=== PATIENT | male | born 1970 | race Caucasian/White ===

== ENCOUNTER 2019-06-20 08:04 | Inpatient (IN) | payer MEDICAID ==
[~2019-06-20] VITALS: Ht 177.8 cm; Wt 58.3 kg
--- NOTE | ~2019-06-20 | HEMODYNAMI ---
PATIENT:PAM CARRILLO MEDICAL RECORD: [id number] : 68 LOCATION:[id number] ADMISSION DATE: 06/20/19 Generatedon:06/24/201914:16 Patient name: PAM CARRILLO Patient #: [id number] SSN: : 1970 Date of study: 06/24/2019 Page: Of Hemodynamic Procedure Report Patient Data Patient Demographics Procedure consent was obtained First Name: PAM Gender: Male Last Name: GERARDO : 1970 Patient #: [id number] Age: 49 year(s) Race: Unknown Additional ID: [id number] Contact details Address: [address] [place] [address] State: [place] City: [place] Zip code: [address] Past Medical History Allergies: No known allergies Admission Admission Data Admission Date: 06/20/2019 Admission Time: 11:25 Room #: [facility] Procedure Procedure Types Cath Procedure Peripheral Cath Diagnostic Procedure Kyphoplasty Kyphoplasty Thoracic Procedure Description Procedure Date Procedure Date: 06/24/2019 Procedure Start Time: 13:21 Procedure Staff Name Function Grvoer Barrios MD Performing Physician Lenka Lobo RT Monitor RHONDA MONTGOMERY RT Scrub Amie Wells RN Nurse Mariana Olmos RN Nurse Procedure Data Cath Procedure Fluoroscopy Diagnostic fluoroscopy Total fluoroscopy Time: time: 11.5 min 11.5 min Diagnostic fluoroscopy Total fluoroscopy dose: 334 dose: 334 mGy mGy Procedure Medications Medication Administration Route Dosage Ancef (1Gm/50ml NS) I.V.P.B 2 g Heparin Flush Bag added to field 1 bags (1000units/500ml NS) Lidocaine 1% added to field 20 Hemodynamics Rest Heart Rate: 66 (bpm) Snapshots Pre Cath Intra NCS Post Cath Vital Signs Time Heart Resp SPO2 etCO2 NIBP Rhythm Pain Sedation Rate (ipm) (%) (mmHg) (mmHg) Status Level (bpm) 13:01:59 99 20.4 129/64(86) NSR 0 (11) 10(A) , No pain 13:09:47 66 17 99 20.4 115/52(79) NSR 0 (11) 10(A) , No pain 13:13:57 73 21 98 13.6 109/55(83) NSR 0 (11) 10(A) , No pain 13:17:59 69 17 99 27.2 114/61(80) NSR 0 (11) 10(A) , No pain 13:22:07 67 13 99 28 105/59(80) NSR 0 (11) 10(A) , No pain 13:26:11 63 9 99 40.1 117/60(96) NSR 0 (11) 10(A) , No pain 13:30:18 62 10 99 37.8 111/58(77) NSR 0 (11) 10(A) , No pain 13:34:24 63 10 99 37.8 113/58(75) NSR 0 (11) 10(A) , No pain 13:38:30 62 10 99 36.3 106/58(77) NSR 0 (11) 10(A) , No pain 13:42:34 62 10 99 35.5 112/59(78) NSR 0 (11) 10(A) , No pain 13:46:44 61 10 99 34.8 105/50(77) NSR 0 (11) 10(A) , No pain 13:51:30 65 10 99 31 113/59(78) NSR 0 (11) 10(A) , No pain 13:55:34 66 11 100 25.7 116/70(95) NSR 0 (11) 10(A) , No pain 13:59:38 65 14 100 43.9 122/68(95) NSR 0 (11) 10(A) , No pain 14:03:48 63 10 99 42.4 118/58(95) NSR 0 (11) 10(A) , No pain 14:07:58 66 21 99 39.3 115/53(82) NSR 0 (11) 10(A) , No pain 14:12:03 62 11 100 36.3 113/60(82) NSR 0 (11) 10(A) , No pain 14:16:09 36.3 No Cuff NSR 0 (11) 10(A) , No pain Medications Time Medication Route Dose Verified Delivered Reason Notes Effe ctiveness by by 13:00:32 Heparin Flush added 1 Grover Ness used for Bag to bags Sophie Barrios procedure (1000units/500ml field MD DEAN NS) 13:00:47 Lidocaine 1% added 20ml Grover Ness used for to vial Sophie guzmán MD, MD 13:07:23 Ancef (1Gm/50ml I.V.P.B 2 g Grover Holloway used for NS) Sophie Wells RN procedure Procedure Log Time Note 12:37:59 [place] BONE BX 11GA kit opened to sterile field. 12:38:00 Guido BONE CEMENT WITH NEEDLE AUTOPLEX Kit opened to sterile field. 12:38:00 GUIDO 10/2 AUGMENTAION SERAFIN KIT opened to sterile field. 12:38:01 GUIDO 10/2 AUGMENTAION SERAFIN KIT opened to sterile field. 12:38:01 GUIDO BONE FILLER 10G VERTEPORT opened to sterile field. 12:38:05 Mariana Olmos RN sent for patient. Start room use. 12:38:08 Time tracking: Regular hours (M-F 7:00 - 5:00) 12:38:17 Plan of Care:Hemodynamics will remain stable., Cardiac rhythm will remain stable., Comfort level will be maintained., Respiratory function will remain adequate., Patient/ family verbilizes understanding of procedure., Procedure tolerated without complication., Recovers from procedure without complications.. 12:38:27 Patient received from Med/Surg to IR Alert and oriented. Tansferred to table in Prone position. 12:38:31 Signed procedure consent form obtained from patient. 12:38:36 Use device set IR Diagnostic 12:38:38 Bag Decanter (2002S) opened to sterile field. 12:38:39 Sterile Angiographic Pack opened to sterile field. 12:38:39 Tegaderm 4 x 4 (1626W) opened to sterile field. 12:38:49 Warm blankets applied, and manish hugger turned on for patient comfort. 12:38:50 Correct patient and procedure confirmed by team. 12:38:54 - 12:41:43 Patient allergic to No known allergies 12:41:47 Is patient on blood thinner?No 12:41:51 - 12:41:57 ----see anethesia note for Pre-sedation anethsthesia assessment.---- 12:42:11 - 13:00:32 Heparin Flush Bag (1000units/500ml NS) 1 bags added to field was administered by Grover Barrios MD; used for procedure; Verbal order read back and verified. 13:00:47 Lidocaine 1% 20ml vial added to field was administered by Grover berg MD; used for procedure; Verbal order read back and verified. 13:02:16 H&P Date Dictated: 06/24/2019 Within 30 days and on chart.. 13:02:18 Pre-procedure instructions explained to patient. 13:02:18 Pre-op teaching completed and patient verbalized understanding. 13:02:22 Family in waiting room. 13:02:27 Patient NPO since Midnight. 13:02:42 IV patent on arrival in right hand with D5/.45%NaCl at KVO. 13:02:54 Thoracic area was prepped with dura-prep and draped in sterile fashion 13:03:00 - 13:04:00 Use device set IR Diagnostic 13:04:02 Tegaderm 4 x 4 (1626W) opened to sterile field. 13:04:03 Sterile Angiographic Pack opened to sterile field. 13:04:04 Bag Decanter () opened to sterile field. 13:04:29 - 13:07:23 Ancef (1Gm/50ml NS) 2 g I.V.P.B was administered by Amie Wells RN; used for procedure; Verbal order read back and verified. 13:08:43 ECG and BP/O2 sat monitors applied to patient. 13:08:44 Vital chart was started 13:08:46 Baseline sample Acquired. 13:08:49 Full Disclosure recording started 13:08:50 - 13:09:00 - 13:20:05 Physician arrived 13:20:06 --------ALL STOP TIME OUT------ 13:20:07 Final Timeout: patient, procedure, and site verified with staff and physician. All members of the team are in agreement. 13:20:28 Fire Safety Assessment: A--An alcohol-based skin anteseptic being used preoperatively., C--Open oxygen or nitrous oxide is being used. 13:21:43 Procedure started. 13:21:52 Local anesthetic to Thoracic area with Lidocaine 1% by Grover Barrios MD.INITIAL ACCESS ONLY 13:28:23 Jamshidi needle introduced. 13:39:24 Bone bx needle placed. 13:45:02 Kyphoplasty balloon introduced. 13:58:24 Cement introduced to vertebral body. 14:01:03 Jamshidi needle removed. 14:04:11 Procedure ended.(Physican Out) 14:04:28 Fluoroscopy time 11.50 minutes. 14:04:35 Fluoroscopy dose: 334 mGy 14:04:35 Flurop Dose total: 334 14:05:25 Procedure and supply charges have been captured, reviewed, submitted an d are correct. 14:16:39 Vital chart was stopped Device Usage Item Name Manufacture Quantity Catalog Hospital Part Current Minim al Lot# / Number Charge Number Stock Stock Serial# Code Guido BONE Guido 1 [id number] 5 BX 11GA kit Guido BONE [place] 1 [id number] 5 CEMENT WITH NEEDLE AUTOPLEX Kit GUIDO 10/2 [place] 2 [id number] [id number] [id number] 5 AUGMENTAION SERAFIN KIT GUIDO BONE Guido 1 [id number] 248801 016045 [id number] 5 FILLER 10G VERTEPORT Bag Decanter Microtek 2 2001S [id number] [id number] 5 (2001S) [employer] Sterile Cardinal 2 [id number] 5 Angiographic Health Pack Tegaderm 4 x 3M 2 1626W [id number] 5 4 (1626W) Signature Audit [place] Stage Time Signature Unsigned Intra-Procedure 06/24/2019 Lenka Lobo 2:16:35 PM RT(R) [facility] [address] [place] [address]
[2019-06-20 09:47] LABS: BASOPHILS 0.1 % (0-2); EOSINOPHILS 1.6 % (0-7); HEMATOCRIT 36.1 % (42.0-54.0); HEMOGLOBIN 12.2 g/dL (13.5-17.5); IMMATURE GRANULOCYTES 0.3 % (0-5); LYMPHOCYTES 13.4 % (15-50); MCH 29.7 pg (26.0-34.0); MCHC 33.8 g/dL (31.0-37.0); MCV 87.8 fL (80.0-100.0); MEAN PLATELET VOLUME 9.2 fL (7.4-10.4); MONOCYTES 9.3 % (2-11); NEUTROPHILS 75.3 % (40-80); PLATELET COUNT 354 10x3/uL (130-400); RBC 4.11 10x6/uL (4.20-6.10); RDW 14.5 % (11.5-14.5); WBC 10.7 10x3/uL (4.8-10.8)
--- NOTE | 2019-06-20 09:50 | NUR ---
CARLEE LANZA, AND PRIMARY RN TO BEDSIDE TO UPDATE PT ON POC.
--- NOTE | 2019-06-20 10:05 | NUR ---
PT'S AND FATHER AT BEDSIDE. JUAN FRANCISCOP, CARLEE AT BEDSIDE UPDATING ON POC.
[2019-06-20 10:06] LABS: INR 1.05 (0.85-1.17); PROTIME 13.2 SECONDS (11.6-15.0)
[2019-06-20 10:22] LABS: CALC OSMOLALITY 274 mosm/kg (275-300); CALCIUM 9.1 mg/dL (8.5-10.1); CARBON DIOXIDE 27.3 mmol/L (21.0-32.0); CHLORIDE - SERUM 102 mmol/L (98-107); CREATININE - SERUM 0.6 mg/dL (0.6-1.3); GLUCOSE 97 mg/dL (74-106); POTASSIUM - SERUM 4.3 mmol/L (3.5-5.1); SODIUM 138 mmol/L (136-145); UREA NITROGEN 10 mg/dL (7-18); eGFR NON AFRICAN AMERICAN > 90 mL/min (90-120)
[2019-06-20 10:29] LABS: ALKALINE PHOSPHATASE 91 U/L (46-116); ALT (SGPT) 29 U/L (10-68); BILIRUBIN - TOTAL 0.27 mg/dL (0.2-1.3); PROTEIN - SERUM 6.7 g/dL (6.4-8.2)
--- NOTE | 2019-06-20 11:40 | NUR ---
URINE SPECIMEN COLLECTED AND SENT TO LAB
[2019-06-20 11:51] VITALS: BP 134/72
[2019-06-20 12:06] LABS: APPEARANCE CLOUDY (CLEAR); COLOR YELLOW (YELLOW)
[2019-06-20 12:07] LABS: BILIRUBIN NEGATIVE (NEGATIVE); GLUCOSE NEGATIVE (NEGATIVE); KETONE NEGATIVE (NEGATIVE); NITRITE NEGATIVE (NEGATIVE); PROTEIN NEGATIVE (NEGATIVE); UROBILINOGEN NORMAL (NORMAL)
[2019-06-20 12:40] VITALS: BP 125/63; BMI 19.0
--- NOTE | 2019-06-20 12:50 | NUR ---
PT ARRIVES TO ROOM VIA STRETCHER ESCORTED BY ER STAFF. PT IS AAO X 4. PT REPORTS PAIN TO LWER BACK DESCRIBED AT DULL ACHING THAT RADITES THROUGHOUT BACK. PT ABLE TO "SCOOT' FROM STRETCHER TO HOSPITAL BED WITHOUT ASSISTANCE. PIV TO RIGHT FA IS SALIN LOCKED. RESPIRATIONS ARE EVEN AND UNLABORED. NON SKID FOOTWEAR GIVEN. PT ORIENTED TO ROOM AND FLOOR. PT DENIES FURTHER QUESTIONS/CONCERNS/NEEDS AT THIS TIME. PT TO RETURN "SOON". BED IS IN THE LOWEST POSITION. CALL LIGHT AND BEDSIDE TABLE ARE WITHIN REACH. SIDE RAILS X 2. PT DENIES FURTHER NEEDS. WILL CONT TO MONITOR.
[2019-06-20 14:58] LABS: % SATURATION 11 % (15-55); IRON 32 ug/dl (35-150); TOTAL IRON BIND CAPACITY 270 ug/dl (260-445); UNSAT IRON BIND CAPACITY 238 ug/dl (150-375)
[2019-06-20 15:24] LABS: MAGNESIUM - SERUM 1.8 mg/dL (1.8-2.4)
--- NOTE | 2019-06-20 19:00 | NUR ---
PATIENT SITTING UP IN BED WATCHING TV. PATIENT STATES HIS PAIN IS A 5 OUT OF 10. PATIENT STATES HE HAS NO FURTHER NEEDS AT THIS TIME. BED RAILS X2. CALL LIGHT AND BESIDE TABLE WITHIN REACH.
[2019-06-20 20:00] VITALS: BP 122/80; BP 145/67
[2019-06-21] VITALS (15 sets, daily range): BP systolic 111–145; BP diastolic 61–83; Ht 177.8 cm; Wt 58.3 kg
[2019-06-21 05:51] LABS: BASOPHILS 0.1 % (0-2); EOSINOPHILS 0.6 % (0-7); HEMATOCRIT 37.1 % (42.0-54.0); HEMOGLOBIN 12.6 g/dL (13.5-17.5); IMMATURE GRANULOCYTES 0.3 % (0-5); LYMPHOCYTES 14.8 % (15-50); MCH 29.7 pg (26.0-34.0); MCV 87.5 fL (80.0-100.0); MEAN PLATELET VOLUME 9.5 fL (7.4-10.4); MONOCYTES 10.8 % (2-11); NEUTROPHILS 73.4 % (40-80); PLATELET COUNT 421 10x3/uL (130-400); RBC 4.24 10x6/uL (4.20-6.10); RDW 14.4 % (11.5-14.5)
[2019-06-21 06:20] LABS: ALBUMIN 2.7 g/dL (3.4-5.0); ALKALINE PHOSPHATASE 90 U/L (46-116); ALT (SGPT) 27 U/L (10-68); BILIRUBIN - TOTAL 0.27 mg/dL (0.2-1.3); CALCIUM 8.9 mg/dL (8.5-10.1); CARBON DIOXIDE 25.2 mmol/L (21.0-32.0); CHLORIDE - SERUM 100 mmol/L (98-107); CREATININE - SERUM 0.7 mg/dL (0.6-1.3); GLUCOSE 89 mg/dL (74-106); MAGNESIUM - SERUM 1.6 mg/dL (1.8-2.4); POTASSIUM - SERUM 4.5 mmol/L (3.5-5.1); PROTEIN - SERUM 6.3 g/dL (6.4-8.2); SODIUM 134 mmol/L (136-145); eGFR NON AFRICAN AMERICAN > 90 mL/min (90-120)
[2019-06-21 06:22] LABS: CALC OSMOLALITY 266 mosm/kg (275-300); UREA NITROGEN 13 mg/dL (7-18)
--- NOTE | 2019-06-21 10:00 | NUR ---
eldest daughter juan in room. no further needs at this time. cl in reach. wctm
[2019-06-21 10:49] LABS: APTT 34.6 SECONDS (22.8-39.4); INR 1.06 (0.85-1.17); PROTIME 13.3 SECONDS (11.6-15.0)
[2019-06-22] VITALS: BP 124/65
[2019-06-22 04:00] VITALS: BP 108/60
[2019-06-22 04:39] LABS: BASOPHILS 0.1 % (0-2); EOSINOPHILS 1.4 % (0-7); HEMATOCRIT 36.7 % (42.0-54.0); HEMOGLOBIN 12.3 g/dL (13.5-17.5); IMMATURE GRANULOCYTES 0.2 % (0-5); MCH 29.6 pg (26.0-34.0); MCHC 33.5 g/dL (31.0-37.0); MCV 88.4 fL (80.0-100.0); MEAN PLATELET VOLUME 9.6 fL (7.4-10.4); MONOCYTES 9.6 % (2-11); NEUTROPHILS 79.7 % (40-80); PLATELET COUNT 396 10x3/uL (130-400); RBC 4.15 10x6/uL (4.20-6.10); RDW 14.4 % (11.5-14.5)
[2019-06-22 04:54] LABS: ALBUMIN 2.7 g/dL (3.4-5.0); ALKALINE PHOSPHATASE 85 U/L (46-116); BILIRUBIN - TOTAL 0.29 mg/dL (0.2-1.3); CALC OSMOLALITY 273 mosm/kg (275-300); CALCIUM 8.1 mg/dL (8.5-10.1); CARBON DIOXIDE 26.2 mmol/L (21.0-32.0); CHLORIDE - SERUM 101 mmol/L (98-107); CREATININE - SERUM 0.7 mg/dL (0.6-1.3); GLUCOSE 96 mg/dL (74-106); MAGNESIUM - SERUM 1.5 mg/dL (1.8-2.4); POTASSIUM - SERUM 4.1 mmol/L (3.5-5.1); PROTEIN - SERUM 6.4 g/dL (6.4-8.2); SODIUM 137 mmol/L (136-145); UREA NITROGEN 12 mg/dL (7-18); eGFR NON AFRICAN AMERICAN > 90 mL/min (90-120)
[2019-06-22 04:55] LABS: ALT (SGPT) 36 U/L (10-68)
--- NOTE | 2019-06-22 08:10 | NUR ---
REQUESTED AND GIVEN ONE PERCOCET PO FOR C/O BACK PAIN LEVEL 7. WILL MONITOR. AWAKE AND ALERT. ORIENTED X3. LUNGS ARE CLEAR BILATERALLY, NO COUGH NOTED. SKIN IS INTACT WITHOUT REDNESS. IV TO RIGHT FOREARM IS PATENT WITHOUT REDNESS AT INSERTION SITE. AT BEDSIDE. DENIES NEEDS.
[2019-06-22 08:19] VITALS: BP 125/61
--- NOTE | 2019-06-22 08:30 | NUR ---
REQUESTED AND GIVEN ONE PERCOCET PO FOR C/O BACK PAIN LEVEL 8. WILL MONITOR.
--- NOTE | 2019-06-22 09:00 | NUR ---
ATE MOST OF BREAKFAST. NO FURTHER C/O NAUSEA. DENIES NEEDS.
--- NOTE | 2019-06-22 10:45 | NUR ---
OFF UNIT VIA FOR MRI.
--- NOTE | 2019-06-22 11:04 | NUR ---
RETURNED FROM MRI. UNALBE TO LIE FLAT ON TABLE.
--- NOTE | 2019-06-22 11:30 | NUR ---
SPOKE WITH DR. HUERTA. PRE MED ORDERS RECEIVED FOR MRI.
--- NOTE | 2019-06-22 11:33 | NUR ---
GIVEN PRE MRI MEDS SLOW IVP PER ORDERS. OFF UNIT VIA WC FOR MRI.
--- NOTE | 2019-06-22 11:42 | NUR ---
OFF UNIT VIA FOR MRI.
--- NOTE | 2019-06-22 12:00 | NUR ---
PAIN TO IV SITE REPORTED. WARM MOIST HEAT APPLIED TO AREA. WILL MONITOR.
--- NOTE | 2019-06-22 12:30 | NUR ---
RETURNED FROM MRI. DENIES NEEDS.
--- NOTE | 2019-06-22 14:51 | NUR ---
RESTING QUIETLY IN BED WITH EYES CLOSED. FAMILY IN ROOM.
[2019-06-22 16:14] VITALS: BP 140/71
--- NOTE | 2019-06-22 16:27 | NUR ---
OT NOTE: PT COMPLETED SUPINE TO SIT WITH CGA. PT COMPLETED SIT TO STAND WITH CGA. PT COMPLETED ADL MOB WITH CGA. PT COMPLETED UE AROM AXS. PT WORE BACK BRACE. THANK YOU, JACK SINGER
--- NOTE | 2019-06-22 18:19 | NUR ---
ATE MOST OF SUPPER. DENIES NEEDS. NO CHAGES NOTED. FAMILY AT BEDSIDE.
--- NOTE | 2019-06-22 19:35 | NUR ---
LYING IN BED TALKING TO SPOUSE. ALERT AND ORIENTED X4. RES NONLABORED. NONPROD COUGH AT TIMES. TELEMETRY SHOWS SR WITH RATE OF 61. RATES PAIN IN BACK 6 ON PAIN SCALE. RN WOMENS HEALTH MORPHINE IN USE. NS @ 50 MLHR INFUSING IN RT FOREARM WITHOUT DIFF. SCDS IN USE BILAT. NO EDEMA NOTED. DENIES NEEDS. SR ELEVATED X2. CL IN REACH.
[2019-06-22 20:25] VITALS: BP 136/75
--- NOTE | 2019-06-22 21:53 | NUR ---
RESTING IN BED. NO DISTRESS. DENIES NEEDS. SR ELEVATED X2. CL IN REACH.
[2019-06-23 00:20] VITALS: BP 127/64
[2019-06-23 03:56] VITALS: BP 119/74
--- NOTE | 2019-06-23 03:58 | NUR ---
HAS RESTED WELL TONIGHT. NO DISTRESS. AT BEDSIDE. PT DENIES NEEDS. CL IN REACH.
[2019-06-23 05:38] LABS: BASOPHILS 0.2 % (0-2); EOSINOPHILS 2.1 % (0-7); HEMOGLOBIN 12.1 g/dL (13.5-17.5); IMMATURE GRANULOCYTES 0.2 % (0-5); LYMPHOCYTES 10.1 % (15-50); MCH 29.4 pg (26.0-34.0); MCHC 33.6 g/dL (31.0-37.0); MCV 87.6 fL (80.0-100.0); MEAN PLATELET VOLUME 9.7 fL (7.4-10.4); MONOCYTES 9.2 % (2-11); NEUTROPHILS 78.2 % (40-80); PLATELET COUNT 361 10x3/uL (130-400); RBC 4.11 10x6/uL (4.20-6.10); RDW 14.2 % (11.5-14.5)
[2019-06-23 05:50] LABS: WBC 9.7 10x3/uL (4.8-10.8)
[2019-06-23 06:15] LABS: ALBUMIN 2.6 g/dL (3.4-5.0); ALKALINE PHOSPHATASE 88 U/L (46-116); ALT (SGPT) 30 U/L (10-68); BILIRUBIN - TOTAL 0.32 mg/dL (0.2-1.3); CALC OSMOLALITY 260 mosm/kg (275-300); CALCIUM 7.6 mg/dL (8.5-10.1); CARBON DIOXIDE 24.5 mmol/L (21.0-32.0); CHLORIDE - SERUM 97 mmol/L (98-107); CREATININE - SERUM 0.6 mg/dL (0.6-1.3); GLUCOSE 100 mg/dL (74-106); MAGNESIUM - SERUM 1.7 mg/dL (1.8-2.4); PROTEIN - SERUM 6.2 g/dL (6.4-8.2); SODIUM 131 mmol/L (136-145); UREA NITROGEN 8 mg/dL (7-18); eGFR NON AFRICAN AMERICAN > 90 mL/min (90-120)
--- NOTE | 2019-06-23 07:58 | NUR ---
AWAKE AND ALERT. ORIENTED X3. NO C/O AT THIS TIME. LUNGS ARE CLEAR BILATERALLY, NO COUGH NOTED. SKIN IS INTACT WITHOUT REDNESS. REPORTS PAIN GREATLY IMPROVED WITH CURRENT REGIMEN. IV TO RIGHT FOREARM IS PATENT WITHOUT REDNESS AT INSERTION SITE. AT BEDSIDE. DENIES NEEDS.
[2019-06-23 08:39] VITALS: BP 133/72
--- NOTE | 2019-06-23 09:47 | MORECARE ---
CASE MANAGEMENT DISCHARGE SUMMARY PATIENT: PAM CARRILLO UNIT: [id number] ADM DATE: 06/20/19 AGE: 49 : 68 SEX: M ROOM/BED: D.2201 AUTHOR: SHINDOC PHYSICIAN: REFERRING PHYSICIAN: LG RITTER MD DATE OF SERVICE: 06/23/19 Discharge Plan Patient Name: PAM CARRILLO Facility: 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 CM educated patient on the CM role and verbal consent given by patient to complete assessment. Patient lives at home with his where he is independent with his care. At discharge patient plans to return home and feels this is a safe discharge. CM discussed availability of home health, rehab services, and medical equipment. He has a ramp, wheelchair, and crutches. asked about getting him a hospital bed. I will speak to MD about that. Patient denied any other known discharge needs at this time. CM will continue to follow and will assist as needed with dc plans/needs. Promotions Representative: Kelsea Spencer DCPIA - Discharge Planning Initial Assessment Updated by [email or web address]: Kelsea Spencer on 06/23/19 9:43 am * Is the patient Alert and Oriented? Yes * How many steps to enter\exit or inside your home? RAMP * PCP WILIAN RITTER * Pharmacy [address] * Preadmission Environment Home with Family * ADLs Independent * Equipment Crutch Wheelchair * List name and contact numbers for known caregivers / representatives who currently or will assist patient after discharge: COURTNEY () [phone] * Verbal permission to speak to the caregivers and representatives has been obtained from the patient. N/A * Community resources currently utilized None * Additional services required to return to the preadmission environment? Yes * Can the patient safely return to the preadmission environment? Yes * Has this patient been hospitalized within the prior 30 days at any hospital? No Patient Name: PAM CARRILLO Page [id number] at 0947 All edits/amendments must be made on the electronic document DICTATION DATE: 06/23/19946 CANTEEN ATTENDANT: LILIANA 06/23/19946 RPT#: [id number] DC DATE: STATUS: ADM IN [facility] [address] [place] [address] END OF REPORT
[2019-06-23 09:49] LABS: INR 1.12 (0.85-1.17); PROTIME 13.8 SECONDS (11.6-15.0)
[2019-06-23 09:50] LABS: APTT 34.6 SECONDS (22.8-39.4)
--- NOTE | 2019-06-23 10:04 | NUR ---
PLACED NPO PER ORDERS. UP TO SHOWER WITH 'S ASSISTANCE. DENIES NEEDS.
[2019-06-23 12:57] VITALS: BP 111/64
--- NOTE | 2019-06-23 13:28 | NUR ---
OT NOTE: PT TOOK A SHOWER THIS AM. STATED THAT HE WALKED TO SHOWER WITHOUT DIFFICULTY AND WAS ABLE TO BATHE SELF WITHOUT PROBLEMS. PT WANTED TO HOLD ON THERAPY HE IS HAVING A PROCEDURE THIS AFTERNOON. LAKHWINDER ISRAEL, OTR/L
--- NOTE | 2019-06-23 13:45 | NUR ---
OFF UNIT VIA BED TO IR.
--- NOTE | 2019-06-23 14:05 | NUR ---
RETURNED FROM IR. UNABLE TO DO PROCEDURE BECAUSE PATIENT HAD BREAKFAST. WILL DO TOMMORROW. NPO AFTER MIDNIGHT.
[2019-06-23 17:27] VITALS: BP 117/68
--- NOTE | 2019-06-23 19:48 | NUR ---
ATE MOST OF SUPPER. DENIES NEEDS. NO CHAGES NOTED.
[2019-06-23 20:00] VITALS: BP 112/73
--- NOTE | 2019-06-23 20:00 | NUR ---
ALERT SITTING UP N BED, REPORTS MILD PAIN INCIDENT COORDINATOR IN USE STATES GOOD PAIN CONTROL, DENIES NEEDS AT THIS TIME, SEE SHIFT ASSESSMENT, AT BEDSIDE, CALL LIGHT IN REACH
[2019-06-24] VITALS (11 sets, daily range): BP systolic 112–133; BP diastolic 62–72
--- NOTE | 2019-06-24 00:34 | NUR ---
EYES CLOSED RESPIRATIONS WITH EASE AND UNLABORED. TELM. SR WITH HR 65. IV PATENT RT FOREARM OF NS AT 50CC'S/HR. REPLANTING MACHINE CREW OF MORPHINE IN USE W/SETTINGS AT 1MG Q10MN W/10MG Q4H L/O. PT NPO FOR PROCEDURE IN AM.FAMILY MEMBER AT BEDSIDE.
[2019-06-24 04:47] LABS: BASOPHILS 0.2 % (0-2); EOSINOPHILS 2.1 % (0-7); HEMATOCRIT 35.4 % (42.0-54.0); HEMOGLOBIN 11.9 g/dL (13.5-17.5); IMMATURE GRANULOCYTES 0.3 % (0-5); LYMPHOCYTES 10.7 % (15-50); MCH 29.2 pg (26.0-34.0); MCHC 33.6 g/dL (31.0-37.0); MEAN PLATELET VOLUME 9.5 fL (7.4-10.4); MONOCYTES 11.9 % (2-11); NEUTROPHILS 74.8 % (40-80); PLATELET COUNT 340 10x3/uL (130-400); RBC 4.07 10x6/uL (4.20-6.10); RDW 14.2 % (11.5-14.5); WBC 10.3 10x3/uL (4.8-10.8)
[2019-06-24 05:24] LABS: ALBUMIN 2.6 g/dL (3.4-5.0); ALKALINE PHOSPHATASE 89 U/L (46-116); ALT (SGPT) 30 U/L (10-68); BILIRUBIN - TOTAL 0.21 mg/dL (0.2-1.3); CALC OSMOLALITY 262 mosm/kg (275-300); CALCIUM 7.5 mg/dL (8.5-10.1); CARBON DIOXIDE 24.5 mmol/L (21.0-32.0); CHLORIDE - SERUM 99 mmol/L (98-107); CREATININE - SERUM 0.6 mg/dL (0.6-1.3); GLUCOSE 97 mg/dL (74-106); MAGNESIUM - SERUM 2.1 mg/dL (1.8-2.4); POTASSIUM - SERUM 4.2 mmol/L (3.5-5.1); PROTEIN - SERUM 6.2 g/dL (6.4-8.2); SODIUM 132 mmol/L (136-145); UREA NITROGEN 8 mg/dL (7-18); eGFR NON AFRICAN AMERICAN > 90 mL/min (90-120)
--- NOTE | 2019-06-24 08:13 | NUR ---
PATIENT IS ALERT/ORIENT. FAMILY AT BEDSIDE. PATIENT UNHOOKED FROM IV FLUIDS FOR SHOWER. TELEMETRY ALSO REMOVED FOR SHOWER. PATIENT IS SCHEDULED FOR DEEP BONE BIOSPY TODAY
--- NOTE | 2019-06-24 12:53 | NUR ---
PATIENT TAKEN DOWN TO SURGERY FOR DEEP BGONE BIOSPY AND KYPHOPLASTY
--- NOTE | 2019-06-24 14:25 | NUR ---
PATIENT RETURNED TO ROOM FROM SURGERY. STABLE. V/S TAKEN. FAMILY IN ROOM WITH PATIENT. BATCHMAKER PUMP HOOKED BACK UP TO PATIENT
--- NOTE | 2019-06-24 15:00 | NUR ---
I have reviewed this patient and I concur with the Shift Assessment completed by the Licensed Practical Nurse today this shift.
--- NOTE | 2019-06-24 17:36 | NUR ---
DR RITTER PAGED IN REGARDS TO PAIN MEDCATION. DR HORTA PIGMENT AND LACQUER MIXER FOR DR RITTER
--- NOTE | 2019-06-24 18:09 | NUR ---
DR HORTA RETURNED PAGE. NEW ORDERS RECEIVED
--- NOTE | 2019-06-24 21:00 | NUR ---
A&O X 4, FAMILY AT BEDSIDE. REPORTS 8/10 PAIN TO BACK WHILE USING HOUSE MOTHER. PT AND FAMILY HAVE QUESTIONS ABOUT TESTS RESULTS THAT HAVE NOT BEEN REVIEWED WITH THEM BY A DR. WILL PASS IN REPORT. CONTINUE PLAN OF CARE.
[2019-06-25 01:03] VITALS: BP 149/76
[2019-06-25 05:00] LABS: BASOPHILS 0.2 % (0-2); EOSINOPHILS 1.2 % (0-7); HEMATOCRIT 38.9 % (42.0-54.0); HEMOGLOBIN 13.2 g/dL (13.5-17.5); IMMATURE GRANULOCYTES 0.2 % (0-5); LYMPHOCYTES 8.4 % (15-50); MCH 29.7 pg (26.0-34.0); MCHC 33.9 g/dL (31.0-37.0); MCV 87.6 fL (80.0-100.0); MEAN PLATELET VOLUME 9.9 fL (7.4-10.4); MONOCYTES 10.8 % (2-11); NEUTROPHILS 79.2 % (40-80); PLATELET COUNT 403 10x3/uL (130-400); RBC 4.44 10x6/uL (4.20-6.10); RDW 14.3 % (11.5-14.5); WBC 12.7 10x3/uL (4.8-10.8)
[2019-06-25 05:03] LABS: ALBUMIN 2.7 g/dL (3.4-5.0); ALKALINE PHOSPHATASE 96 U/L (46-116); ALT (SGPT) 26 U/L (10-68); BILIRUBIN - TOTAL 0.34 mg/dL (0.2-1.3); CALC OSMOLALITY 259 mosm/kg (275-300); CALCIUM 7.5 mg/dL (8.5-10.1); CARBON DIOXIDE 24.3 mmol/L (21.0-32.0); CHLORIDE - SERUM 96 mmol/L (98-107); CREATININE - SERUM 0.7 mg/dL (0.6-1.3); GLUCOSE 106 mg/dL (74-106); MAGNESIUM - SERUM 2.1 mg/dL (1.8-2.4); POTASSIUM - SERUM 4.1 mmol/L (3.5-5.1); PROTEIN - SERUM 6.6 g/dL (6.4-8.2); SODIUM 130 mmol/L (136-145); UREA NITROGEN 10 mg/dL (7-18); eGFR NON AFRICAN AMERICAN > 90 mL/min (90-120)
[2019-06-25 05:16] VITALS: BP 123/66
[2019-06-25 08:27] VITALS: BP 140/68
[2019-06-25 12:47] VITALS: BP 128/69
--- NOTE | 2019-06-25 13:59 | NUR ---
Nutrition follow-up: Diet: Regular PO Intake ~55% of last 5 meals; has been NPO for surgery (kyphosplasty) Labs reviewed Wt: 129# Will provide food choices and honor food preferences. RDN following.
[2019-06-25 16:53] VITALS: BP 141/72
[2019-06-25 21:16] VITALS: BP 128/69
[2019-06-26] VITALS: BP 109/71
[2019-06-26 04:00] VITALS: BP 143/78
[2019-06-26 06:40] LABS: BASOPHILS 0.2 % (0-2); EOSINOPHILS 0.6 % (0-7); HEMATOCRIT 37.3 % (42.0-54.0); HEMOGLOBIN 12.7 g/dL (13.5-17.5); IMMATURE GRANULOCYTES 0.3 % (0-5); LYMPHOCYTES 8.1 % (15-50); MCH 29.5 pg (26.0-34.0); MCV 86.5 fL (80.0-100.0); MEAN PLATELET VOLUME 9.9 fL (7.4-10.4); MONOCYTES 13.4 % (2-11); NEUTROPHILS 77.4 % (40-80); PLATELET COUNT 384 10x3/uL (130-400); RBC 4.31 10x6/uL (4.20-6.10); RDW 14.2 % (11.5-14.5)
--- NOTE | 2019-06-26 08:40 | NUR ---
DR RITTER HERE TO SEE PT, MAY D/C THIS PM IF PAIN UNDER CONTROL WITH PO
[2019-06-26 08:55] VITALS: BP 111/56
[2019-06-26 12:04] VITALS: BP 118/66
[2019-06-26 16:08] VITALS: BP 132/66
--- NOTE | 2019-06-26 17:15 | NUR ---
1MG OF MORPHINE USED SINCE LAST CLEARED
--- NOTE | 2019-06-26 19:30 | NUR ---
LYING IN BED. ALERT AND ORIENTED X4. TALKATIVE WITH STAFF. AT BEDSIDE. RESP EVEN AND NONLABORED. TELEMETRY SHOWS SR WITH RATE OF 60. C/O BACK PAIN RATING 8 ON PAIN SCALE. MEDICATED WITH NORCO PRIOR TO SHIFT CHANGE. GEN WEAKNESS NOTED. PT IS EMACIATED. AMBULATORY. NO EDEMA NOTED. NS @ 50 MLHR INFUSING IN RT FOREARM WITHOUT DIFF. SPINNER IRON ON BUT PT STATES HE ISNT USING IT. SR ELEVATED X2. CL IN REACH.
[2019-06-26 19:57] VITALS: BP 125/70
--- NOTE | 2019-06-26 21:40 | NUR ---
MEDICATED WITH NORCO FOR C/O PAIN IN BACK. PT IRRITATED BECAUSE HE STATES HE TOLD SOMEONE THAT HE NEEDED PAIN MED 30 MINUTES AGO BUT THEY DIDNT RELAY THE MSG TO THIS NURSE. APOLOGIZED TO PT FOR DELAY. CL IN REACH.
--- NOTE | 2019-06-26 22:50 | NUR ---
C/O NAUSEA. STATES PAIN IS BETTER NOW. MEDICATED WITH ZOFRAN ORDERED. CL IN REACH.
--- NOTE | 2019-06-26 23:36 | NUR ---
AGITATED WHEN XEROX MACHINE ASSEMBLER CAME IN TO TAKE V/S. PT PULLED OFF TELMETRY AND THREW IT ACROSS THE ROOM. REFUSES TO WEAR IT. CURSING.
[2019-06-27] VITALS: BP 134/66
--- NOTE | 2019-06-27 01:40 | NUR ---
MEDICATED WITH NORCO FOR C/O PAIN IN BACK. AT BEDSIDE. CL IN REACH.
[2019-06-27 04:00] VITALS: BP 131/61
--- NOTE | 2019-06-27 04:27 | NUR ---
LYING IN BED. STATES HE USED HIS LEGAL CONTRACTS SPECIALIST ONCE DURING THE NIGHT BECAUSE HE JUST COULDNT STAND THE PAIN. NO DISTRESS. AT BEDSIDE. CL IN REACH.
--- NOTE | 2019-06-27 05:50 | NUR ---
MEDICATED FOR C/O BACK PAIN WITH NORCO
[2019-06-27 07:59] VITALS: BP 132/70
--- NOTE | 2019-06-27 10:44 | NUR ---
PT RESTING IN BED, NO DISTRESS NOTED, WALKED THIS AM WITH THERAPY, WANTS TO SPEEK WITH DR ABOUT INCREASING PAIN MEDS
[2019-06-27 12:07] VITALS: BP 127/68
[2019-06-27] MEDS ORDERED: HYDROCODON-ACE1 EA10 PO (15:45)
[2019-06-27] MEDS ORDERED: DURAGESIC1 PATCH .1 TRANSDERM (15:45)
[2019-06-27 16:17] VITALS: BP 148/75
--- NOTE | 2019-06-27 16:30 | NUR ---
IV D/C, TIP INTACT, REVIEWED DC ORDERS WITH PT, PROVIDED RX, VOICED NO CONCERNS
--- NOTE | 2019-06-27 18:30 | NUR ---
1730 PT TAKEN FROM HOSPITAL PER W/C
--- NOTE | 2019-06-28 14:12 | MORECARE ---
CASE MANAGEMENT DISCHARGE SUMMARY PATIENT: PAM CARRILLO UNIT: [id number] ADM DATE: 06/20/19 AGE: 49 : 68 SEX: M ROOM/BED: D.2201 AUTHOR: SHINDOC PHYSICIAN: REFERRING PHYSICIAN: LG RITTER MD DATE OF SERVICE: 06/28/19 Discharge Plan Patient Name: PAM CARRILLO Facility: [facility]:[place] : 1970 Planned Disposition: Home or Self Care Anticipated Discharge Date: Discharge Date: 06/27/2019 Expected LOS: Initial Reviewer: [email or web address] Initial Review Date: 06/20/2019 Generated: 06/28/19 3:11 pm DCP- Discharge Planning Updated by [email or web address]: Kelsea Spencer on 06/23/19 8:[address] Patient Name: PAM CARRILLO Admission Status: ER Accout number: [id number] Admission Date: 06-20-2019 : 1970 Admission Diagnosis:NEOPLASM OF UNSPECIFIED BEHAVIOR OF LEFT KIDNEY Attending: LG RITTER Current LOS: 3 Anticipated DC Date: Planned Disposition: Home or Self Care Primary Insurance: [place] PRIVATE OPTIONS MAR[place] Discharge Planning Comments: CM met with patient to complete initial dc planning assessment. CM educated patient on the CM role and verbal consent given by patient to complete assessment. Patient lives at home with his where he is independent with his care. At discharge patient plans to return home and feels this is a safe discharge. CM discussed availability of home health, rehab services, and medical equipment. He has a ramp, wheelchair, and crutches. asked about getting him a hospital bed. I will speak to MD about that. Patient denied any other known discharge needs at this time. CM will continue to follow and will assist as needed with dc plans/needs. Manufacturing Scheduler: Kelsea Spencer DCPIA - Discharge Planning Initial Assessment Updated by [email or web address]: Kelsea Spencer on 06/23/19 9:43 am * Is the patient Alert and Oriented? Yes * How many steps to enter\exit or inside your home? RAMP * PCP WILIAN RITTER * Pharmacy [address] * Preadmission Environment Home with Family * ADLs Independent * Equipment Crutch Wheelchair * List name and contact numbers for known caregivers / representatives who currently or will assist patient after discharge: COURTNEY () [phone] * Verbal permission to speak to the caregivers and representatives has been obtained from the patient. N/A * Community resources currently utilized None * Additional services required to return to the preadmission environment? Yes * Can the patient safely return to the preadmission environment? Yes * Has this patient been hospitalized within the prior 30 days at any hospital? No Last DP export: 06/23/19 8:47 Patient Name: PAM CARRILLO Page [phone] at 1412 All edits/amendments must be made on the electronic document DICTATION DATE: 06/28/191410 RECORDS COORDINATOR: LILIANA 06/28/191410 RPT#: [id number] DC DATE:06/27/19 STATUS: DIS IN [address] [place] [address] END OF REPORT
== END 2019-06-27 17:30 | disposition home or self-care (01) | DRG 477 ==
LOC: D.ER 08:04 → D.MS 11:25
PROVIDERS: Family Medicine; Radiology Diagnostic Radiology; Specialist; ADMIT Family Medicine; ATTEND Family Medicine
PROC: 0QB23ZX Excision of Right Pelvic Bone, Percutaneous Approach, Diagnostic (ICD-10-PCS; principal; 2019-06-21 13:00)
PROC: 0PB43ZX Excision of Thoracic Vertebra, Percutaneous Approach, Diagnostic (ICD-10-PCS; 2019-06-24)
PROC: 0PS43ZZ Reposition Thoracic Vertebra, Percutaneous Approach (ICD-10-PCS; 2019-06-24)
PROC: 0PU43JZ Supplement Thoracic Vertebra with Synthetic Substitute, Percutaneous Approach (ICD-10-PCS; 2019-06-24)
DX: M84.58XA Pathological fracture in neoplastic disease, other specified site, initial encounter for fracture (principal); E43 Unspecified severe protein-calorie malnutrition; C79.51 Secondary malignant neoplasm of bone; C79.72 Secondary malignant neoplasm of left adrenal gland; Z68.1 Body mass index [BMI] 19.9 or less, adult; C78.02 Secondary malignant neoplasm of left lung; C78.01 Secondary malignant neoplasm of right lung; I10 Essential (primary) hypertension; D64.9 Anemia, unspecified; R59.0 Localized enlarged lymph nodes; M48.00 Spinal stenosis, site unspecified; N28.89 Other specified disorders of kidney and ureter

== ENCOUNTER 2019-07-05 22:43 | Inpatient (IN) | payer MEDICAID ==
[~2019-07-05] VITALS: Ht 177.8 cm; Wt 56.7 kg
[~2019-07-05 22:43] MED LIST: DURAGESIC1 PATCH .1 TRANSDERM; HYDROCODON-ACE1 EA10 PO
[2019-07-05] MEDS ORDERED: DULCOLAX10 MG/SUPP RC (23:07)
[2019-07-05] MEDS ORDERED: VOLTAREN25 MG PO (23:07)
--- NOTE | 2019-07-05 23:33 | NUR ---
PT TO CT VIA WHEELCHAIR.
[2019-07-05 23:47] LABS: HEMATOCRIT 33.7 % (42.0-54.0); HEMOGLOBIN 11.5 g/dL (13.5-17.5); LYMPHOCYTES 10.7 % (15-50); MCH 29.8 pg (26.0-34.0); MCHC 34.1 g/dL (31.0-37.0); MCV 87.3 fL (80.0-100.0); MEAN PLATELET VOLUME 8.3 fL (7.4-10.4); NEUTROPHILS 78.1 % (40-80); PLATELET COUNT 414 10x3/uL (130-400); RBC 3.86 10x6/uL (4.20-6.10); RDW 14.3 % (11.5-14.5); WBC 13.6 10x3/uL (4.8-10.8)
--- NOTE | 2019-07-05 23:56 | NUR ---
PT BACK TO CT VIA WHEELCHAIR FOR SECOND ATTEMPT
[2019-07-06 00:22] LABS: CALC OSMOLALITY 260 mosm/kg (275-300); CALCIUM 8.6 mg/dL (8.5-10.1); CARBON DIOXIDE 27.2 mmol/L (21.0-32.0); CHLORIDE - SERUM 97 mmol/L (98-107); CREATININE - SERUM 0.6 mg/dL (0.6-1.3); GLUCOSE 100 mg/dL (74-106); POTASSIUM - SERUM 4.4 mmol/L (3.5-5.1); SODIUM 131 mmol/L (136-145); UREA NITROGEN 8 mg/dL (7-18); eGFR NON AFRICAN AMERICAN > 90 mL/min (90-120)
[2019-07-06 00:30] LABS: ALBUMIN 2.8 g/dL (3.4-5.0); ALKALINE PHOSPHATASE 105 U/L (46-116); ALT (SGPT) 42 U/L (10-68); BILIRUBIN - TOTAL 0.21 mg/dL (0.2-1.3)
--- NOTE | 2019-07-06 00:43 | NUR ---
URINE TO LAB.
[2019-07-06 01:12] VITALS: BP 100/49
[2019-07-06 01:27] LABS: APPEARANCE CLEAR (CLEAR); BILIRUBIN NEGATIVE (NEGATIVE); COLOR YELLOW (YELLOW); GLUCOSE NEGATIVE (NEGATIVE); KETONE NEGATIVE (NEGATIVE); NITRITE NEGATIVE (NEGATIVE); PROTEIN NEGATIVE (NEGATIVE); UROBILINOGEN NORMAL (NORMAL)
[2019-07-06 01:28] LABS: BACTERIA FEW /hpf (NEGATIVE); EPITHELIAL CELLS 0-5 /hpf (0-5); RED CELLS - URINE 0-5 /hpf (0-5); WHITE CELLS - URINE 0-5 /hpf (NEGATIVE)
--- NOTE | 2019-07-06 01:49 | NUR ---
PATIENT TO FLOOR WITH SPOUSE. ANSWERS QUESTIONS APPROPRIATELY. APPLIED SCD'S, PROVIDED WITH URINAL AND OTHER BATHROOM ESSENTIALS. BILATERAL SWELLING TO THE LOWER EXTREMETIES. PATIENT TOLERATING SCD'S WELL. CALL LIGHT IN REACH. DENIES ISSUES AT THIS TIME. NOTIFIED COMPUTER DISCOVERY TEACHER WAS TO FLOOR TO PERFORM ADMISSION ASSESSMENT.
[2019-07-06 04:26] VITALS: BP 100/49; BMI 17.9
--- NOTE | 2019-07-06 06:19 | NUR ---
I have reviewed this patient and I concur with the Shift Assessment completed by the Licensed Practical Nurse today this shift.
--- NOTE | 2019-07-06 08:00 | NUR ---
AASSESSMENT PER FLOW SHEET. PT IS WITHOUT DISTRESS.CALL LIGHT IN REACH.
[2019-07-06 08:24] VITALS: BP 122/62
[2019-07-06 12:48] VITALS: BMI 17.9
[2019-07-06 12:54] VITALS: BP 146/67
--- NOTE | 2019-07-06 14:30 | NUR ---
CALL TO DR GARG RE.. DR HUERTA OUT OF TOWN. WE ARE TO CONSULT IR
[2019-07-06 17:06] VITALS: BP 143/62
--- NOTE | 2019-07-06 18:55 | NUR ---
PT HAS REMAINED WITHOUT CHANGE FROM INITIAL SHIFT ASSESSMENT. WITH LAST DOSE OF IV DILAUDID, PT DECLINED HALF AFTER MEDICATION MIXED.MEDICATION WASTED WITH PRIYANKA ADLER RN.
[2019-07-06 20:00] VITALS: BP 139/67
[2019-07-07] VITALS (10 sets, daily range): BP systolic 132–152; BP diastolic 63–80; Ht 177.8 cm; Wt 56.7 kg
--- NOTE | 2019-07-07 00:14 | NUR ---
PT RESTING IN BED. EYES CLOSED. NO SIGNS OF DISTRESS. BREATHING EVEN ADN UNLABORED. IV SITE LT WRIST DRESSING CLEAN DRY AND INTACT. NO SIGNS OF INFECTION. SKIN CLEAN DRY AND INTACT. BOWEL SOUNDS ACTIVE. LUNG SOUNDS CLEAR. TELE MONITOR ON 60 SINUS. NO LOWER LEG SWELLING PRESENT. WILL CONTINUE PLAN OF CARE. CALL LIGHT IN REACH. BED LOWERED AND LOCKED. BED RAILS UPX2.
--- NOTE | 2019-07-07 01:07 | NUR ---
I have reviewed this patient and I concur with the Shift Assessment completed by the Licensed Practical Nurse today this shift.
--- NOTE | 2019-07-07 08:00 | NUR ---
PATIENT IN BED WITH NO COMPLAINTS OR SIGNS OF DISTRESS. IV INTACT. CALL LIGHT WITHIN REACH. FAMILY AT BEDSIDE.
[2019-07-07 09:42] LABS: BASOPHILS 0.1 % (0-2); EOSINOPHILS 0.5 % (0-7); HEMATOCRIT 33.8 % (42.0-54.0); HEMOGLOBIN 11.1 g/dL (13.5-17.5); IMMATURE GRANULOCYTES 0.3 % (0-5); LYMPHOCYTES 8.5 % (15-50); MCH 28.8 pg (26.0-34.0); MCHC 32.8 g/dL (31.0-37.0); MCV 87.8 fL (80.0-100.0); MEAN PLATELET VOLUME 9.1 fL (7.4-10.4); MONOCYTES 10.2 % (2-11); NEUTROPHILS 80.4 % (40-80); PLATELET COUNT 376 10x3/uL (130-400); RBC 3.85 10x6/uL (4.20-6.10); RDW 14.3 % (11.5-14.5); WBC 13.3 10x3/uL (4.8-10.8)
[2019-07-07 09:53] LABS: APTT 40.2 SECONDS (22.8-39.4); INR 1.19 (0.85-1.17); PROTIME 14.6 SECONDS (11.6-15.0)
[2019-07-07 09:56] LABS: CALC OSMOLALITY 262 mosm/kg (275-300); CALCIUM 8.1 mg/dL (8.5-10.1); CHLORIDE - SERUM 99 mmol/L (98-107); CREATININE - SERUM 0.4 mg/dL (0.6-1.3); GLUCOSE 101 mg/dL (74-106); MAGNESIUM - SERUM 1.8 mg/dL (1.8-2.4); PHOSPHOROUS 2.8 mg/dL (2.5-4.9); POTASSIUM - SERUM 4.3 mmol/L (3.5-5.1); SODIUM 132 mmol/L (136-145); UREA NITROGEN 7 mg/dL (7-18); eGFR NON AFRICAN AMERICAN > 90 mL/min (90-120)
--- NOTE | 2019-07-07 12:10 | NUR ---
PATIENT RECIEVED PAIN MEDS BY MENDEL HOOD.
--- NOTE | 2019-07-07 14:06 | NUR ---
NUTRITION F/U PT CURRENTLY NPO FOR PROCEDURE. WILL PROVIDE DIET WHEN RESUMED, MONITOR PO INTAKE. RD FOLLOWING
--- NOTE | 2019-07-07 16:03 | NUR ---
PATIENT GETTING BIOPSY AT THIS TIME.
--- NOTE | 2019-07-07 17:40 | NUR ---
PATIENT EATING REGULAR DIET AT THIS TIME WITH NO PROBLEMS. CALL LIGHT WITHIN REACH. FAMILY AT BEDSIDE.
--- NOTE | 2019-07-07 21:00 | NUR ---
LYING IN BED TALKING TO SPOUSE. ALERT AND ORIENTED X4. RESP EVEN AND NONLABORED. TELEMETRY SHOWS SR WITH RATE OF 66. RATES PAIN IN BACK 8. SCDS IN USE. NS @ 100 MLHR INFUSING IN LT FOREARM. SR ELEVATED X2. CL IN REACH.
--- NOTE | 2019-07-07 21:30 | NUR ---
IV LEAKING BLOOD IN LT FOREARM. IV REMOVED. 22G INSERTED IN RT FOREARM X1 ATTEMPT. MEDICATED WITH DILAUDID ORDERED FOR BACK AND LEG PAIN.
--- NOTE | 2019-07-07 23:37 | NUR ---
MEDICATED WITH NORCO ORDERED FOR C/O BACK AND LEG PAIN RATING 7. STATES THE DR SAID I COULD HAVE IT IN BETWEEN DILAUDID. CHECKED V/S PRIOR TO ADMINISTRATION AND THEY WERE STABLE
[2019-07-08] VITALS: BP 111/60
--- NOTE | 2019-07-08 02:05 | NUR ---
MEDICATED WITH DILAUDID FOR C/O PAIN IN BACK. CL IN REACH.
[2019-07-08 04:00] VITALS: BP 142/69
--- NOTE | 2019-07-08 06:00 | NUR ---
REQUESTING PAIN MEDS. MEDICATED WITH DILAUDID ORDERED. RESP EVEN AND NONLABORED. SITTING UP ON SIDE OF BED. ANXIOUS AND RESTLESS. CL IN REACH.
--- NOTE | 2019-07-08 08:00 | NUR ---
ASSESSMENT PER FLOW SHEET. PT IS WITHOUT DISTRESS.CALL LIGHT IN REACH.MONITOR FOR NEEDS.
[2019-07-08 08:42] VITALS: BP 94/74
[2019-07-08 12:29] VITALS: BP 136/70
[2019-07-08 17:35] VITALS: BP 137/68
--- NOTE | 2019-07-08 17:53 | NUR ---
REMAINS WITHOUT DISTRESS. REMAINS WITHOUT CHANGE FROM INTITIAL SHIFT ASSESSMENT.CONT PLAN OF CARE
[2019-07-08 19:30] VITALS: BP 147/65
--- NOTE | 2019-07-08 21:00 | NUR ---
A/O WITH NO SIGNS OF ACUTE DISTRESS. AT BEDSIDE. IV TO THE RT FOREARM WITH NO REDNESS OR SWELLING NOTED. INTACT DRESSING TO THE LT LOWER BACK. DENIES NO FURTHER NEEDS. CONTINUE PLAN OF CARE.
[2019-07-09 00:30] VITALS: BP 152/71
--- NOTE | 2019-07-09 04:35 | NUR ---
RECEIVED PERMISSION FROM DR. HORTA TO RESTART DILAUDID. WILL CONTINUE TO MONITOR.
[2019-07-09 05:00] VITALS: BP 120/53
--- NOTE | 2019-07-09 08:00 | NUR ---
PATIENT SITTING UP IN CHAIR WITH IV INTACT. NO COMPLAINTS OR SIGNS OF DISTRESS. CALL LIGHT WITHIN REACH.
[2019-07-09 09:01] VITALS: BP 140/69
[2019-07-09 12:59] VITALS: BP 143/61
[2019-07-09 16:13] VITALS: BP 148/79
--- NOTE | 2019-07-09 18:45 | NUR ---
PATIENT SITTING UP IN CHAIR WITH NO COMPLAINTS. STATED HE WANTS HIS PAIN MEDS AT 1920. WANTS IV DILAUDID. EXPLAINED HE CANT HAVE IT UNTIL 1999. AND THAT HE MAY WANT TO TRY NORCO TO SEE IF IT WILL WORK FOR HIM AT HOME. STATED HE DIDNT WANT IT PO. CALL LIGHT WITHIN REACH. REPORT GIVEN TO NIGHT NURSE.
--- NOTE | 2019-07-09 19:15 | NUR ---
RECEIVED BEDSIDE REPORT. SPOKE WITH PATIENT ABOUT NORCO AND PAIN CONTROL PATIENT STATED WITH LARRY CASTRO AT BEDSIDE "I AM IN PAIN. I AM GOING TO NEED MY PAIN SHOT AT 8PM. IT IS DUE AT EXACTLY 8PM AND I AM GOING TO NEED IT." TOLD PATIENT "YOU HAVE A NORCO AVAILABLE WOULD YOU LIKE TO TRY THAT INSTEAD OF THE DILAUDID" PATIENT STATED "NO, I NEED THAT PAIN SHOT. I WAITING TOO LONG LAST TIME AND PAIN HAS NOT BEEN OKAY SINCE SO I NEED TO GO AHEAD AND GET IT AT 8PM AND MAYBE THAT WILL BE MY LAST ONE." STATED UNDERSTANDING TO PATIENT. THIS NURSE WAS LEAVING THE ROOM PATIENT YELLS "REMEMBER, 8PM!"
[2019-07-09 20:00] VITALS: BP 137/66; BP 153/77
--- NOTE | 2019-07-09 20:05 | NUR ---
WHILE ADMINISTERING MEDICATION, SPOKE WITH PATIENT ABOUT NORCO AND DEALING WITH PAIN AT HOME. PATIENT DISCUSSED AT GREAT LENGTH WITH THIS NURSE THE UNDERSTANDING OF NOT BEING ABLE TO GO HOME ON DILAUDID AND THAT HE HOPED TO NOT HAVE ANYMORE DILAUDID THROUGH OUT THE NIGHT. ASKED PATIENT IF HE WOULD LIKE TO START A NORCO REGIMEN, PATIENT STATED HE WOULD. THIS NURSE TOLD PATIENT THAT I WOULD REASSESS HIS PAIN IN ABOUT TWO HOURS. THIS WAY WE COULD START NORCOS BEFORE PAIN BECOMES UNBEARABLE. PATIENT STATED HE WOULD TRY THIS AND WAS THANKFUL FOR OPTIONS. CPOC.
--- NOTE | 2019-07-09 22:25 | NUR ---
PATIENT RATES PAIN 5/10. ASKED FOR NORCO. ADMINISTERED PER ORDER.
[2019-07-10] VITALS: BP 141/70
--- NOTE | 2019-07-10 01:55 | NUR ---
ANSWERED PATIENT CALL LIGHT. PATIENT REQUESTING PAIN MEDICATION. DENIES NORCO ASKS FOR DILAUDID. STATES THAT PAIN IS TOO INTENSE AND NORCO IS NOT WORKING.
--- NOTE | 2019-07-10 03:00 | NUR ---
I have reviewed this patient and I concur with the Shift Assessment completed by the Licensed Practical Nurse today this shift.
[2019-07-10 04:00] VITALS: BP 137/75
--- NOTE | 2019-07-10 04:52 | NUR ---
CHANGED IV TUBING PER POLICY PROTOCAL.
--- NOTE | 2019-07-10 06:33 | NUR ---
IN PATIENT ROOM TO CHANGE TRASH. PATIENT STATES THAT HE IS IN PAIN AND NEEDS PAIN MEDICINE. ASKED IF HE WOULD LIKE TO TAKE THE NORCO AND PATIENT STATES "NO I DONT THINK THATS GOING TO WORK FOR ME I NEED MY PAIN SHOT." ADMINISTERED DILAUDID PER ORDER. EMPTIED PATIENT URINAL. PATIENT REMOVED SCD'S AND STATED HE WAS HOT. TURNED DOWN AIR CONDITIONER. DENIES FURTHER NEEDS.
--- NOTE | 2019-07-10 08:00 | NUR ---
ASSESSMENT PER FLOW SHEET. PT IS WITHOUT DISTRESS.MONITOR FOR NEEDS.CALL LIGHT IN REACH
[2019-07-10 08:01] VITALS: BP 141/79
[2019-07-10 11:58] VITALS: BP 162/84
[2019-07-10 16:56] VITALS: BP 134/57
--- NOTE | 2019-07-10 19:10 | NUR ---
BEDSIDE REPORT RECEIVED. PATIENT WITH HOB ELEVATED TO A 45 DEGREE ANGLE. SPOKE WITH PATIENT ABOUT PAIN CARE REGIMEN. STATES HE WOULD LIKE TO TRY NORCOS NOW THAT FENTANYL PATCH IS INCREASED HE FEELS THAT NORCO IS HANDLING PAIN BETTER. PATIENT DID ASK IF DILAUDID STILL AVAILABLE AND THIS NURSE INSTRUCTED PATIENT TO CALL NURSE IF PAIN INCREASES AND WE WILL EVALUATE ACCORDINGLY BUT THAT HE HAS NO REASON TO BE IN UNBEARABLE PAIN AND THAT THE PLAN OF CARE WOULD BE PAIN CONTROL TO THE BEST OF OUR ABILITY. PATIENT VERBALZIES UNDERSTANDING AND THANKS NURSING STAFF. CALL LIGHT IN REACH. CPOC.
[2019-07-10 19:30] VITALS: BP 137/69
--- NOTE | 2019-07-10 23:00 | NUR ---
PATIENT REQUESTED PAIN MEDICINE. ADMINISTERED PER ORDER.
[2019-07-11 00:30] VITALS: BP 141/74
--- NOTE | 2019-07-11 03:00 | NUR ---
I have reviewed this patient and I concur with the Shift Assessment completed by the Licensed Practical Nurse today this shift.
[2019-07-11 04:30] VITALS: BP 150/78
--- NOTE | 2019-07-11 08:00 | NUR ---
ASSESSMENT PER FLOW SHEET. PT IS WITHOUT DISTRESS.CALL LIGHT IN REACH.
[2019-07-11 08:40] VITALS: BP 148/74
[2019-07-11] MEDS ORDERED: Duragesic TRANSDERM (10:11)
--- NOTE | 2019-07-11 10:33 | MORECARE ---
CASE MANAGEMENT DISCHARGE SUMMARY PATIENT: PAM CARRILLO UNIT: [id number] ADM DATE: 07/06/19 AGE: 49 : 68 SEX: M ROOM/BED: D.2216 AUTHOR: JW MELISSA PHYSICIAN: REFERRING PHYSICIAN: NHI GARG MD DATE OF SERVICE: 07/11/19 Discharge Plan Patient Name: PAM CARRILLO [facility] [facility] 1970 Planned Disposition: Home Anticipated Discharge Date: Discharge Date: Expected LOS: Initial Reviewer: [email or web address] Initial Review Date: 07/11/2019 Generated: 07/11/19 11:32 am DCPIA - Discharge Planning Initial Assessment Updated by [email or web address]: Theresa Avila on 07/11/19 10:29 am * Is the patient Alert and Oriented? Yes * Pharmacy [facility] * Preadmission Environment Home with Family * ADLs Independent * Other Equipment STATES HAS EQUIPMENT AT HOME AND [facility] IS DELIVERING HOSPITAL BED TOMORROW * List name and contact numbers for known caregivers / representatives who currently or will assist patient after discharge: DARRELL * Community resources currently utilized None * Additional services required to return to the preadmission environment? No * Can the patient safely return to the preadmission environment? Yes * Has this patient been hospitalized within the prior 30 days at any hospital? Yes Patient Name: PAM CARRILLO Page [phone] at 1033 All edits/amendments must be made on the electronic document DICTATION DATE: 07/11/19 1032 EDGE BANDING OFF BEARER: LILIANA 07/11/19 1032 RPT#: [id number] DC DATE: STATUS: ADM IN [facility] [address] [place] [address] END OF REPORT
--- NOTE | 2019-07-11 10:39 | MORECARE ---
CASE MANAGEMENT DISCHARGE SUMMARY PATIENT: PAM CARRILLO UNIT: [id number] ADM DATE: 07/06/19 AGE: 49 : 68 SEX: M ROOM/BED: D.2216 AUTHOR: SHIN,DOC PHYSICIAN: REFERRING PHYSICIAN: NHI GARG MD DATE OF SERVICE: 07/11/19 Discharge Plan Patient Name: PAM CARRILLO Facility: [facility]:[place] : 1970 Planned Disposition: Home Anticipated Discharge Date: 07/11/19 Discharge Date: Expected LOS: 5 Initial Reviewer: [email or web address] Initial Review Date: 07/11/2019 Generated: 07/11/19 11:39 am Comments DCP- Discharge Planning Updated by [email or web address]: Theresa Avila on 07/11/19 9:[address] Patient Name: PAM CARRILLO Admission Status: ER Accout number: [id number] Admission Date: 07-06-2019 : 1970 Admission Diagnosis: Attending: NHI GARG Current LOS: 5 Anticipated DC Date: Planned Disposition: Home [place]: [place] PRIVATE OPTIONS MAR[place] Discharge Planning Comments: CM met with patient AND HIS DARRELL at bedside after explaining CM role and obtaining verbal consent. CM discussed availability / needs of home health, REHAB and medical equipment. STATES HAS EQUIPMENT AT HOME AND [facility] WILL BE DELIVERING HOSPITAL BED TOMORROW. DOES NOT WANT HH OR REHAB AT THIS TIME. THEY STATE THEY WILL CONTACT HIS PCP IF HE CHANGES HIS MIND. HELPS CARE FOR HIM AT HOME. CM TO FOLLOW AND ASSIST NEEDED. Contracts Analyst: Theresa Avila DCPIA - Discharge Planning Initial Assessment Updated by [email or web address]: Theresa Avila on 07/11/19 10:29 am * Is the patient Alert and Oriented? Yes * Pharmacy [facility] * Preadmission Environment Home with Family * ADLs Independent * Other Equipment STATES HAS EQUIPMENT AT HOME AND [facility] IS DELIVERING HOSPITAL BED TOMORROW * List name and contact numbers for known caregivers / representatives who currently or will assist patient after discharge: DARRELL * Community resources currently utilized None * Additional services required to return to the preadmission environment? No * Can the patient safely return to the preadmission environment? Yes * Has this patient been hospitalized within the prior 30 days at any hospital? Yes Last DP export: 07/11/19 9:33 a Patient Name: PAM CARRILLO Page 49950 at 1039 All edits/amendments must be made on the electronic document DICTATION DATE: 07/11/19 103 SQUEEGEE TENDER: LILIANA 07/11/19 1039 RPT#: [id number] DC DATE: STATUS: ADM IN [facility] [address] [place] [address] END OF REPORT
--- NOTE | 2019-07-11 11:25 | NUR ---
DISCHARGE INSTRUCTIONS,STATES UNDERSTANDING. IV DCD WITH CATH TIP INTACT. LEFT UNIT VIA WHEELCHAIR FOR TRANSPORT HOME.
[2019-07-12] MEDS ORDERED: LASIX40 MG PO (10:42)
--- NOTE | 2019-07-18 16:18 | MORECARE ---
CASE MANAGEMENT DISCHARGE SUMMARY PATIENT: PAM CARRILLO UNIT: [id number] ADM DATE: 07/06/19 AGE: 49 : 68 SEX: M ROOM/BED: D.2216 AUTHOR: SHINDOC PHYSICIAN: REFERRING PHYSICIAN: NHI GARG MD DATE OF SERVICE: 07/18/19 Discharge Plan Patient Name: PAM CARRILLO Facility: [facility]:[place] : 1970 Planned Disposition: Home Anticipated Discharge Date: 07/11/19 Discharge Date: 07/11/2019 Expected LOS: 5 Initial Reviewer: [email or web address] Initial Review Date: 07/11/2019 Generated: 07/18/19 5:17 pm Comments DCP- Discharge Planning Updated by [email or web address]: Theresa Avila on 07/11/19 9:[address] Patient Name: PAM CARRILLO Admission Status: ER Accout number: [id number] Admission Date: 07-06-2019 : 1970 Admission Diagnosis: Attending: NHI GARG Current LOS: 5 Anticipated DC Date: Planned Disposition: Home [place] Insurance: [place] PRIVATE OPTIONS [place] Discharge Planning Comments: CM met with patient AND HIS DARRELL at bedside after explaining CM role and obtaining verbal consent. CM discussed availability / needs of home health, REHAB and medical equipment. STATES HAS EQUIPMENT AT HOME AND [facility] WILL BE DELIVERING HOSPITAL BED TOMORROW. DOES NOT WANT HH OR REHAB AT THIS TIME. THEY STATE THEY WILL CONTACT HIS PCP IF HE CHANGES HIS MIND. HELPS CARE FOR HIM AT HOME. CM TO FOLLOW AND ASSIST NEEDED. Ethnoarchaeologist: Theresa Avila DCPIA - Discharge Planning Initial Assessment Updated by [email or web address]: Theresa Avila on 07/11/19 10:29 am * Is the patient Alert and Oriented? Yes * Pharmacy [facility] * Preadmission Environment Home with Family * ADLs Independent * Other Equipment STATES HAS EQUIPMENT AT HOME AND [facility] IS DELIVERING HOSPITAL BED TOMORROW * List name and contact numbers for known caregivers / representatives who currently or will assist patient after discharge: DARRELL * Community resources currently utilized None * Additional services required to return to the preadmission environment? No * Can the patient safely return to the preadmission environment? Yes * Has this patient been hospitalized within the prior 30 days at any hospital? Yes Last DP export: 07/11/19 9:39 a Patient Name: PAM CARRILLO Page 12871 at 1618 All edits/amendments must be made on the electronic document DICTATION DATE: 07/18/191616 METALS ANALYST: LILIANA 07/18/191616 RPT#: [id number] DC DATE:07/11/19 STATUS: DIS IN [facility] [address] [place] [address] END OF REPORT
== END 2019-07-11 11:28 | disposition home or self-care (01) | DRG 542 ==
LOC: D.ER 22:43 → OBSVTIME 07-06 00:52 → D.MS 07-06 00:52
PROVIDERS: Family Medicine; General Practice; ADMIT Family Medicine; ATTEND Family Medicine
PROC: 0WBH3ZX Excision of Retroperitoneum, Percutaneous Approach, Diagnostic (ICD-10-PCS; principal; 2019-07-07 15:35)
DX: M84.58XA Pathological fracture in neoplastic disease, other specified site, initial encounter for fracture (principal); E43 Unspecified severe protein-calorie malnutrition; C64.9 Malignant neoplasm of unspecified kidney, except renal pelvis; C79.51 Secondary malignant neoplasm of bone

== ENCOUNTER 2019-07-12 08:55 | Emergency (ER) | payer MEDICAID ==
[~2019-07-12] VITALS: Ht 177.8 cm; Wt 58.2 kg
[~2019-07-12 08:55] MED LIST changes: +DULCOLAX10 MG/SUPP RC; +Duragesic TRANSDERM; +VOLTAREN25 MG PO
[2019-07-12 08:56] VITALS: Ht 177.8 cm; Wt 58.2 kg
[2019-07-12 09:28] LABS: BASOPHILS 0.1 % (0-2); EOSINOPHILS 0.4 % (0-7); HEMATOCRIT 34.8 % (42.0-54.0); HEMOGLOBIN 11.5 g/dL (13.5-17.5); IMMATURE GRANULOCYTES 0.3 % (0-5); LYMPHOCYTES 7.9 % (15-50); MCH 28.7 pg (26.0-34.0); MCV 86.8 fL (80.0-100.0); MEAN PLATELET VOLUME 8.7 fL (7.4-10.4); MONOCYTES 10.5 % (2-11); NEUTROPHILS 80.8 % (40-80); PLATELET COUNT 444 10x3/uL (130-400); RBC 4.01 10x6/uL (4.20-6.10); RDW 14.4 % (11.5-14.5); WBC 11.9 10x3/uL (4.8-10.8)
[2019-07-12 09:36] LABS: CALC OSMOLALITY 260 mosm/kg (275-300); CALCIUM 8.7 mg/dL (8.5-10.1); CARBON DIOXIDE 27.4 mmol/L (21.0-32.0); CHLORIDE - SERUM 97 mmol/L (98-107); CREATININE - SERUM 0.5 mg/dL (0.6-1.3); GLUCOSE 93 mg/dL (74-106); POTASSIUM - SERUM 4.1 mmol/L (3.5-5.1); SODIUM 131 mmol/L (136-145); UREA NITROGEN 6 mg/dL (7-18); eGFR NON AFRICAN AMERICAN > 90 mL/min (90-120)
[2019-07-12 09:43] LABS: APPEARANCE CLEAR (CLEAR); COLOR YELLOW (YELLOW); NITRITE NEGATIVE (NEGATIVE); PROTEIN NEGATIVE (NEGATIVE)
[2019-07-12 09:44] LABS: BILIRUBIN NEGATIVE (NEGATIVE); GLUCOSE 50 mg/dL (NEGATIVE); KETONE NEGATIVE (NEGATIVE)
[2019-07-12 09:48] LABS: ALBUMIN 2.4 g/dL (3.4-5.0); ALKALINE PHOSPHATASE 95 U/L (46-116); ALT (SGPT) 26 U/L (10-68); BILIRUBIN - TOTAL 0.27 mg/dL (0.2-1.3); PRO BNP 611 pg/mL (0-125); PROTEIN - SERUM 6.5 g/dL (6.4-8.2)
[2019-07-12] MEDS ORDERED: LASIX40 MG PO (10:42)
[2019-07-12 11:11] VITALS: BP 138/90
== END 2019-07-12 11:11 | disposition home or self-care (01) ==
LOC: D.ER 08:55
PROVIDERS: Family Medicine
DX: E87.70 Fluid overload, unspecified (principal); C64.9 Malignant neoplasm of unspecified kidney, except renal pelvis

== ENCOUNTER 2019-07-12 22:12 | Inpatient (IN) | payer MEDICAID ==
[~2019-07-12] VITALS: Ht 177.8 cm; Wt 58.1 kg
--- NOTE | ~2019-07-12 | HEMODYNAMI ---
PATIENT:PAM CARRILLO MEDICAL RECORD: [id number] : 68 [facility] ADMISSION DATE: 07/13/19 Generatedon:07/16/201915:31 Patient name: PAM CARRILLO Patient #: [id number] SSN: : 1970 Date of study: 07/16/2019 Page: Of Hemodynamic Procedure Report Patient Data Patient Demographics Procedure consent was obtained First Name: PAM Gender: Male Last Name: GERARDO : 1970 Patient #: [id number] Age: 49 year(s) Race: Unknown Additional ID: [id number] Contact details [address]: [address] [place] [address] State: [place] City: [place] Zip code: [address] Past Medical History Allergies: No known allergies Admission Admission Data Admission Date: 07/13/2019 Admission Time: 13:12 Room #: [facility] Height (in.): 70 BSA: 1.73 (m2) Height (cm.): 177.8 BMI: 18.37 (kg/m2) Weight (lbs.): 128 Weight (kg.): 58.06 Procedure Procedure Types Cath Procedure Peripheral Cath Diagnostic Procedure Design Engineering Intern Peripheral Procedures Kyphoplasty Kyphoplasty Lumbar Procedure Description Procedure Date Procedure Date: 07/16/2019 Procedure Start Time: 14:08 Procedure Staff Name Function Linden Red MD Performing Physician Lenka Lobo RT Lawn Technician Michel Ness CRNA Additional personnel Amie Wells RN Nurse RHONDA MONTGOMERY RT Scrub Procedure Data Cath Procedure Fluoroscopy Diagnostic fluoroscopy Total fluoroscopy Time: time: 10.2 min 10.2 min Diagnostic fluoroscopy Total fluoroscopy dose: 313 dose: 313 mGy mGy Procedure Medications Medication Administration Route Dosage Ancef (1Gm/50ml NS) I.V.P.B 1 g Heparin Flush Bag added to field 1 bags (1000units/500ml NS) Lidocaine 1% added to field 20 Hemodynamics Rest BSA: 1.73 (m2) O2 Consumption: Estimated: 208.23 (ml/min) O2 Consumption indexed : Estimated:120.36 (ml/min/m) Heart Rate: 72 (bpm) Snapshots Pre Cath Intra NCS Post Cath Vital Signs Time Heart Resp SPO2 etCO2 NIBP (mmHg) Rhythm Pain Sedation Rate (ipm) (%) (mmHg) Status Level (bpm) 13:55:58 73 19 100 11.3 180/89(139) NSR 0 (11) 10(A) , No pain 14:00:14 60 16 99 4.5 193/102(148) NSR 0 (11) 10(A) , No pain 14:04:36 57 19 100 4.5 179/98(156) NSR 0 (11) 10(A) , No pain 14:08:52 66 17 100 18.8 172/98(132) NSR 0 (11) 10(A) , No pain 14:13:08 70 12 99 43.7 166/91(127) NSR 0 (11) 10(A) , No pain 14:17:22 71 10 99 42.2 159/92(134) NSR 0 (11) 10(A) , No pain 14:22:21 75 11 99 48.2 Measuring NSR 0 (11) 10(A) , No pain 14:22:42 73 11 99 48.2 149/85(116) NSR 0 (11) 10(A) , No pain 14:26:52 74 11 99 12 157/84(114) NSR 0 (11) 10(A) , No pain 14:31:01 80 9 99 19.6 154/91(122) NSR 0 (11) 10(A) , No pain 14:35:11 78 9 99 58 148/88(124) NSR 0 (11) 10(A) , No pain 14:39:21 81 10 99 22.6 154/82(121) NSR 0 (11) 10(A) , No pain 14:43:33 85 9 98 59.5 150/86(125) NSR 0 (11) 10(A) , No pain 14:47:43 85 8 99 65.6 150/87(121) NSR 0 (11) 10(A) , No pain 14:52:42 89 9 98 49 Measuring NSR 0 (11) 10(A) , No pain 14:52:53 87 9 98 49 152/91(130) NSR 0 (11) 10(A) , No pain 14:57:02 89 9 99 6.7 142/86(120) NSR 0 (11) 10(A) , No pain 15:01:12 84 9 99 3 144/79(115) NSR 0 (11) 10(A) , No pain 15:05:18 88 8 98 10.5 139/90(114) NSR 0 (11) 10(A) , No pain 15:09:24 89 8 99 9.8 147/86(126) NSR 0 (11) 10(A) , No pain 15:13:34 88 7 98 9.8 145/80(119) NSR 0 (11) 10(A) , No pain 15:17:41 91 12 98 9 152/85(123) NSR 0 (11) 10(A) , No pain 15:21:53 90 7 98 12.8 138/82(113) NSR 0 (11) 10(A) , No pain 15:25:59 96 8 99 12.8 134/87(108) NSR 0 (11) 10(A) , No pain 15:29:59 0 No Cuff NSR 0 (11) 10(A) , No pain Medications Time Medication Route Dose Verified Delivered Reason Notes Effe ctiveness by by 14:05:32 Ancef (1Gm/50ml I.V.P.B 1 g Linden Holloway used for NS) Russell Red RN procedure 14:06:08 Heparin Flush added 1 Linden Cheatham used for Bag to bags Neda Red MD procedure (1000units/500ml field DEAN NS) 14:06:32 Lidocaine 1% added 20ml Linden Cheatham used for to vial Neda Red MD procedure field DEAN Procedure Log Time Note 13:31:43 Patient Height : 70 inches 13:31:50 Patient Weight : 128 lbs 13:34:06 Time tracking: Regular hours (M-F 7:00 - 5:00) 13:39:48 Plan of Care:Hemodynamics will remain stable., Cardiac rhythm will remain stable., Comfort level will be maintained., Respiratory function will remain adequate., Patient/ family verbilizes understanding of procedure., Procedure tolerated without complication., Recovers from procedure without complications.. 13:39:55 Patient received from Med/Surg to IR Alert and oriented. Tansferred to table in Prone position. 13:39:58 Signed procedure consent form obtained from patient. 13:40:00 Warm blankets applied, and manish hugger turned on for patient comfort. 13:40:01 Correct patient and procedure confirmed by team. 13:40:07 H&P Date Dictated: 07/16/2019 Within 30 days and on chart.. 13:40:09 Pre-procedure instructions explained to patient. 13:40:09 Pre-op teaching completed and patient verbalized understanding. 13:40:11 Family in waiting room. 13:40:14 Patient NPO since Midnight. 13:40:25 Patient allergic to No known allergies 13:40:32 Is patient on blood thinner?No 13:40:37 Patient diabetic? No. 13:40:40 - 13:40:40 ----Pre-sedation anethsthesia assessment.----see anesthesia notes for monitoring of patient during procedure 13:41:49 - 13:41:57 IV patent on arrival in right forearm with D5/.45%NaCl at KVO. 13:42:07 Lumbar area was prepped with dura-prep and draped in sterile fashion 13:42:12 - 13:42:17 Use device set IR Diagnostic 13:42:18 Tegaderm 4 x 4 (1626W) opened to sterile field. 13:42:19 Sterile Angiographic Pack opened to sterile field. 13:42:21 Bag Decanter (2002S) opened to sterile field. 13:54:50 ECG and BP/O2 sat monitors applied to patient. 13:54:50 Vital chart was started 13:54:51 Baseline sample Acquired. 13:54:53 Full Disclosure recording started 13:54:54 - 13:55:27 Baseline sample Acquired. 13:56:37 - 14:05:32 Ancef (1Gm/50ml NS) 1 g I.V.P.B was administered by Amie Wells RN; used for procedure; Verbal order read back and verified. 14:06:08 Heparin Flush Bag (1000units/500ml NS) 1 bags added to field was administered by Linden Red MD; used for procedure; Verbal order read back and verified. 14:06:32 Lidocaine 1% 20ml vial added to field was administered by Linden Red MD; used for procedure; Verbal order read back and verified. 14:07:25 Physician arrived 14:07:26 --------ALL STOP TIME OUT------ 14:07:27 Final Timeout: patient, procedure, and site verified with staff and physician. All members of the team are in agreement. 14:07:46 Fire Safety Assessment: A--An alcohol-based skin anteseptic being used preoperatively., C--Open oxygen or nitrous oxide is being used. 14:08:02 Procedure started. 14:08:09 Local anesthetic to Lumbar area with Lidocaine 1% by Linden Red MD.INITIAL ACCESS ONLY 14:11:00 Guido BONE BX 11GA kit opened to sterile field. 14:12:42 KYPHON ANYA EXPRESS 15/2 CDS SYSTEM opened to sterile field. 14:19:40 Kyphon SUBSTATION OPERATOR AUTOMATIC KIT opened to sterile field. 15:21:00 Procedure ended.(Physican Out) 15:21:13 Fluoroscopy time 10.20 minutes. 15:21:22 Fluoroscopy dose: 313 mGy 15:21:22 Flurop Dose total: 313 15:21:46 Procedure and supply charges have been captured, reviewed, submitted an d are correct. 15:31:26 Report given to Med/Surg. 15:31:48 Vital chart was stopped Device Usage Item Name Manufacture Quantity Catalog Hospital Part Current Minima l Lot# / Number Charge Number Stock Stock Serial# Code Tegaderm 4 x 3M 1 [id number] 5 4 (1626W) Sterile Cardinal 1 [id number] 5 Angiographic Health Pack Bag Decanter Microtek 1 [id number] 05245 [id number] 5 (2001S) Medical Inc[employer] Guido BONE [place] 1 [id number] [id number] 176431 5 BX 11GA kit KYPHON ANYA Medtronic 1 [id number] 5 EXPRESS 15/2 CDS SYSTEM Kyphon Medtronic 1 [id number] [id number] [id number] 5 SUBSTATION OPERATOR AUTOMATIC KIT Signature Audit [place] Stage Time Signature Unsigned Intra-Procedure 07/16/2019 Lenka Lobo 3:31:45 PM RT(R) [id number] [place] [address]
[~2019-07-12 22:12] MED LIST changes: +LASIX40 MG PO
[2019-07-13 00:04] LABS: CALC OSMOLALITY 254 mosm/kg (275-300); CALCIUM 8.8 mg/dL (8.5-10.1); CARBON DIOXIDE 26.4 mmol/L (21.0-32.0); CHLORIDE - SERUM 94 mmol/L (98-107); CREATININE - SERUM 0.5 mg/dL (0.6-1.3); GLUCOSE 97 mg/dL (74-106); POTASSIUM - SERUM 3.9 mmol/L (3.5-5.1); SODIUM 128 mmol/L (136-145); UREA NITROGEN 7 mg/dL (7-18); eGFR NON AFRICAN AMERICAN > 90 mL/min (90-120)
[2019-07-13 00:15] LABS: BASOPHILS 0.1 % (0-2); EOSINOPHILS 0.7 % (0-7); HEMATOCRIT 33.1 % (42.0-54.0); HEMOGLOBIN 11.3 g/dL (13.5-17.5); IMMATURE GRANULOCYTES 0.3 % (0-5); LYMPHOCYTES 8.7 % (15-50); MCH 29.2 pg (26.0-34.0); MCHC 34.1 g/dL (31.0-37.0); MCV 85.5 fL (80.0-100.0); MEAN PLATELET VOLUME 8.8 fL (7.4-10.4); MONOCYTES 11.2 % (2-11); PLATELET COUNT 486 10x3/uL (130-400); RBC 3.87 10x6/uL (4.20-6.10); RDW 14.3 % (11.5-14.5)
[2019-07-13 00:16] LABS: WBC 15.5 10x3/uL (4.8-10.8)
[2019-07-13 00:19] LABS: ALBUMIN 2.5 g/dL (3.4-5.0); ALKALINE PHOSPHATASE 94 U/L (46-116); ALT (SGPT) 30 U/L (10-68); BILIRUBIN - TOTAL 0.32 mg/dL (0.2-1.3); PROTEIN - SERUM 6.7 g/dL (6.4-8.2)
[2019-07-13 05:41] VITALS: BP 151/91
[2019-07-13 05:42] VITALS: BP 152/60; BMI 18.4
[2019-07-13 06:52] LABS: APPEARANCE CLEAR (CLEAR); BILIRUBIN NEGATIVE (NEGATIVE); COLOR YELLOW (YELLOW); GLUCOSE NEGATIVE (NEGATIVE); KETONE NEGATIVE (NEGATIVE); NITRITE NEGATIVE (NEGATIVE); PROTEIN NEGATIVE (NEGATIVE); SPECIFIC GRAVITY 1.005 (1.005-1.020)
--- NOTE | 2019-07-13 07:40 | NUR ---
PT SITTING UP IN CHAIR AT BEDSIDE. PT REPORTS PAIN 9/10 AT THIS TIME. PAIN MEDICATION TO BE ADMINISTERED PER MD ORDERS. SALINE LOC TO RIGHT FOREARM, SITE WITHOUT REDNESS OR EDEMA. PT DENIES FURTHER NEEDS AT THIS TIME. CL WITHIN REACH. ENCOURAGED TO CALL WITH NEEDS. CONTINUE POC
[2019-07-13 08:21] VITALS: BP 141/51
[2019-07-13 12:17] VITALS: BP 130/61
[2019-07-13 13:46] VITALS: Ht 177.8 cm; Wt 58.1 kg
[2019-07-13 16:34] VITALS: BP 161/71
--- NOTE | 2019-07-13 20:00 | NUR ---
IN BATHROOM AT THIS TIME, IN PAIN, 05/20. MEDICATION WILL BE GIVEN PER ORDERS. WILL NOTE ANY CHANGE.
[2019-07-13 21:15] VITALS: BP 138/60
--- NOTE | 2019-07-13 23:19 | NUR ---
I have reviewed this patient and I concur with the Shift Assessment completed by the Licensed Practical Nurse today this shift.
[2019-07-14 01:04] VITALS: BP 137/64
[2019-07-14 05:50] VITALS: BP 172/71
--- NOTE | 2019-07-14 08:00 | NUR ---
GFAMILY AT BEDSIDE.PT IS WITHOUT DISTRESS.CALL LIGHT IN REACH
[2019-07-14 08:36] VITALS: BP 139/63
[2019-07-14 12:32] VITALS: BP 140/76
[2019-07-14 16:28] VITALS: BP 145/80
--- NOTE | 2019-07-14 19:20 | NUR ---
SITTING IN RECLINER, PAIN 10/10, MEDICATION WILL BE GIVEN ACCORDING TO TIME AVAILABLE. OFFERED SUPPORT. UNABLE TO BECOME COMFORTABLE AT THIS TIME. WILL NOTE ANY CHANGE.
[2019-07-14 20:00] VITALS: BP 139/73
--- NOTE | 2019-07-14 22:39 | NUR ---
AT 2100, PT FAMILY MEMBER APPROACHED THIS NURSE THAT HE WAS GETTING ZERO RELIEF FROM PREVIOUS MEDS, THIS NURSE WENT AND ASSESSED, HE WAS SITTING UP ON SIDE OF BED, GRIMACING, GRUNTING AND UNABLE TO MOVE DUE TO BACK "LOCKING UP" ON HIM HE WAS TRYING TO REPOSITION IN BED. THIS NURSE OFFERED ROBAXIN, HEAT PACKS AND PT REQUESTED I CALL DR. WOOD TO LET HER KNOW THAT HIS PAIN WAS NOT UNDER CONTROL AT ALL, FAMILY MEMBER IS VISIBLY UPSET AT SITUATION. THIS NURSE OBLIGED AND CALLED DR WOOD WITH ORDERS TO STOP DILAUDID IV Q2 HOURS AND START EDITOR MANAGING NEWSPAPER DILAUDID OF 0.2/05/14. EDITOR MANAGING NEWSPAPER WAS SET UP, PT WAS COMPLACENT WITH THIS CHANGE, FAMILY MEMBER WAS THANKFUL. AFTER EDITOR MANAGING NEWSPAPER WAS SET UP, FAMILY MEMBER AGAIN APPROACHED THIS NURSE AND REQUESTED A DIFFERENT KIND OF CHAIR FOR PT. EXPLAINED THAT WE HAVE RECLINERS AND WE HAVE STRAIGHT CHAIRS, BOTH PARTIES VERBALLY UNDERSTOOD OUR LIMITED OPTIONS. AFTER TIME PASSED, CHARGE NURSE NOTIFIED THIS NURSE THAT HELICOPTER TECHNICIAN WAS CONTACTED BY PT ABOUT A NEW CHAIR, THIS NURSE AND CHARGE NURSE WENT AND TALKED TO PT ABOUT OPTIONS WHICH INCLUDED AIR BED, DIFFERENT RECLINER, BUT SAME STYLE DUE TO UNIT AVAILABILITY AND DIFFERENT CUSHIONS, PT REFUSED ANY ADDITION TO BED OR MODIFICATION OF BED, STATED HE COULD NOT LAY IN BED OR GET COMFORTABLE IN ANY KIND OF BED. CHARGE NURSE OFFERED SUPPORT, HE THEN DECIDED HE WOULD SIT IN EXISTING RECLINER IN ROOM WITH GEL CUSHION FROM HOME IN SEAT, WANTED ONE PILLOW BEHIND BACK AND PERSONAL NECK PILLOW. WANTED FEET RAISED. THIS NURSE WILL CONTINUE TO OFFER SUPPORT TO PATIENT AND CONTINUE TO HELP WITH PAIN MANAGEMENT ALLOWED.
[2019-07-15] VITALS: BP 141/70
--- NOTE | 2019-07-15 01:08 | NUR ---
COMPLAINT OF "KNOT" TO LEFT INGUINAL AREA, TENDER TO TOUCH, ARE IS HARD AND NON MANIPULATIVE. WILL REPORT ON AND NOTE ANY CHANGE. ICE PACK OFFERED FOR RELIEF MEASURES.
--- NOTE | 2019-07-15 01:45 | NUR ---
I have reviewed this patient and I concur with the Shift Assessment completed by the Licensed Practical Nurse today this shift.
[2019-07-15 04:00] VITALS: BP 141/71
--- NOTE | 2019-07-15 06:17 | NUR ---
DID NOT REST THIS SHIFT, WAS UP ALL NIGHT, PAIN APPEARED TO BE MORE MANAGEABLE WITH ADDITION OF CASEY SAW OPERATOR. DID NOT ASK FOR ANY MEDICATION IN BETWEEN, WILL NOTE ANY CHANGE.
--- NOTE | 2019-07-15 07:53 | NUR ---
PT SITTING UP IN BED. STATES HE IS UNCOMFORTABLE. DILAUDED ORTHO TECH CHANGED PER ORDER. WAS TOLD TO LET ME KNOW IF PAIN IS NOT BEING CONTROLLED PROPERLY AFTER DOSE CHANGE. RR EVEN AND UNLABORED. DENIES FURTHER NEEDS AT THIS TIME. BED INLOWEST POSITION. CALL LIGHT WITHIN REACH. WILL CONTINUE TO MONITOR.
[2019-07-15 08:36] VITALS: BP 134/70
--- NOTE | 2019-07-15 12:30 | NUR ---
I have reviewed this patient and I concur with the Shift Assessment completed by the Licensed Practical Nurse today this shift.
--- NOTE | 2019-07-15 13:41 | NUR ---
Nutrition follow-up: Diet: Regular; po intake poor 2/2 increased pain, pain meds Pt will be NPO 07/26 for kyphoplasty Wt: 128# Will continue to provide food choices and honor all food preferences. Will offer nutritional supplements. RDN following.
[2019-07-15 14:44] VITALS: BP 131/78
[2019-07-15 16:36] VITALS: BP 141/75
--- NOTE | 2019-07-15 19:25 | NUR ---
SITTING ON BEDSIDE. AT SIDE. PAIN MANAGED BY SHOE SALESPERSON WITH EFFECTIVENESS NOTED. PT LOOKS MORE RELAXED THIS SHIFT. SHOWS NO S/S OF ANY ACUTE DISTRESS. WILL NOTE ANY CHANGE.
[2019-07-15 21:00] VITALS: BP 154/86
[2019-07-16] VITALS (12 sets, daily range): BP systolic 117–150; BP diastolic 58–84
--- NOTE | 2019-07-16 01:17 | NUR ---
I have reviewed this patient and I concur with the Shift Assessment completed by the Licensed Practical Nurse today this shift.
--- NOTE | 2019-07-16 04:49 | NUR ---
VOICED NO COMPLAINTS THIS SHIFT, SHOWED NO S/S OF ANY ACUTE DISTRESS THIS SHIFT.
[2019-07-16 07:12] LABS: CALC OSMOLALITY 256 mosm/kg (275-300); CALCIUM 8.9 mg/dL (8.5-10.1); CARBON DIOXIDE 27.1 mmol/L (21.0-32.0); CHLORIDE - SERUM 95 mmol/L (98-107); CREATININE - SERUM 0.5 mg/dL (0.6-1.3); GLUCOSE 102 mg/dL (74-106); SODIUM 129 mmol/L (136-145); UREA NITROGEN 7 mg/dL (7-18); eGFR NON AFRICAN AMERICAN > 90 mL/min (90-120)
[2019-07-16 07:27] LABS: BASOPHILS 0.2 % (0-2); HEMATOCRIT 34.6 % (42.0-54.0); HEMOGLOBIN 11.5 g/dL (13.5-17.5); IMMATURE GRANULOCYTES 0.2 % (0-5); LYMPHOCYTES 12.8 % (15-50); MCH 28.5 pg (26.0-34.0); MCHC 33.2 g/dL (31.0-37.0); MCV 85.9 fL (80.0-100.0); MEAN PLATELET VOLUME 8.9 fL (7.4-10.4); MONOCYTES 13.1 % (2-11); NEUTROPHILS 72.7 % (40-80); PLATELET COUNT 493 10x3/uL (130-400); RBC 4.03 10x6/uL (4.20-6.10); RDW 14.2 % (11.5-14.5); WBC 11.3 10x3/uL (4.8-10.8)
--- NOTE | 2019-07-16 08:00 | NUR ---
ALERT AND ORIENTED X4 WITH AT BEDSIDE. IV INFUSING TO RT F/A AT PRESCRIBED RATE WITH CONCRETE HOPPER OPERATOR DILAUIDID FOR PAIN MANAGEMENT AND EFFECTIVE. TELEMETRY INTACT. PT. NPO AT THIS TIME WITH CONSENTS SIGNED AND VERBALIZED UNDERSTANDING. FENTANYL PATCH APPLIED TO RT. ARM. DENIES ANY PAIN OR DISCOMFORT AND ENCOURAGED TO USE CALL LIGHT FOR ASSIST.
[2019-07-16 08:11] LABS: APTT 39.1 SECONDS (22.8-39.4); INR 1.19 (0.85-1.17); PROTIME 14.6 SECONDS (11.6-15.0)
--- NOTE | 2019-07-16 13:25 | NUR ---
CONSENTS SIGNED AND LEFT FOR PROCEDURE. STABLE AT TIME OF LEAVING FLOOR
--- NOTE | 2019-07-16 15:41 | NUR ---
PT RETURNED TO ROOM.
--- NOTE | 2019-07-16 20:49 | NUR ---
ASSUMED CARE OF THIS PT. PT C/O PAIN IN LT HIP RADIATING TO CALF 6 ON PAIN SCALE. IVANNA SUP NOTIFIED DR STEIN. NEW ORDER NOTED FOR MRI OF LSPINE STAT WITH CONTRAST. ATTEMPTED TO NOTIFY DR HUERTA OF STAT CONSULT. NO ANSWER ON PHONE AND VMAIL IS FULL. NOTIFIED IVANNA REMY OF THIS.
--- NOTE | 2019-07-16 21:25 | NUR ---
SPOKE WITH DR HUERTA. REPORTED PAIN RADIATING IN PTS LT HIP TO CALF. NEW ORDER NOTED FOR DECADRON AND LASIX
--- NOTE | 2019-07-16 23:25 | NUR ---
16 FR SCHMIDT CATH INSERTED WITH IMMEDIATE RETURN OF CLEAR YELLOW URINE. EMPTIED 1200 ML FROM BAG AT THIS TIME. PT MARYURI WELL.
--- NOTE | 2019-07-16 23:45 | NUR ---
SITTING UP IN BED EATING ICE CREAM. RATES PAIN IN LLE 6. CL IN REACH. USING MACHINIST MATE DILAUDID.
[2019-07-17 00:16] VITALS: BP 148/96
--- NOTE | 2019-07-17 01:00 | NUR ---
LYING IN BED WITH EYES CLOSED. RESP EVEN AND NONLABORED. HAD INSTRUCTED PT TO SLEEP IN LAT DECUBITUS POSITION WITH KNEES FLEXED BUT HE REFUSED. LYING SUPINE WITH HOB ELEVATED. RESP SHALLOW. AT BEDSIDE. CL IN REACH. NO DISTRESS.
--- NOTE | 2019-07-17 02:29 | NUR ---
TERRAZZO INSTALLER SYRINGE EMPTY AND REPLACED AT THIS TIME. PT VERY DROWSY. RATES PAIN 8 IN LLE. APPEARS SEDATED. SLOW TO RESPOND TO QUESTIONS. CL IN REACH. AT BEDSIDE. NO DISTRESS.
[2019-07-17 05:07] VITALS: BP 150/81
[2019-07-17 08:46] VITALS: BP 149/93
[2019-07-17 12:45] VITALS: BP 133/85
[2019-07-17 18:02] VITALS: BP 129/84
--- NOTE | 2019-07-17 19:00 | NUR ---
BEDSIDE REPORT RECEIVED AND CARE OF PT ASSUMED. PT LYING IN SUPINE POSITION WATCHING TV. IV TO LEFT FA PATENT WITH NS INFUSING AT 30 ML/HR. ABNORMAL PSYCHOLOGY TEACHER W/ DILAUDID IN USE FOR PAIN CONTROL. SCHMIDT CATHETER DRAINING TO GRAVITY...EMPTIED 700 ML OF DARK YELLOW URINE AND RECORDED ON I & O RECORD. WILL MONITOR FOR NEEDS.
[2019-07-17 19:41] VITALS: BP 149/90
--- NOTE | 2019-07-17 20:00 | NUR ---
[facility] MEDICAITONS GIVEN. FSBS 120 THIS CHECK REQUIRING NO COVERAGE PER SLIDING SCALE.
--- NOTE | 2019-07-17 23:22 | NUR ---
PT RESTING IN SUPINE POSITION. NO NEEDS VOICED AT THIS TIME. IS AT BEDSIDE.
[2019-07-18 00:42] VITALS: BP 151/80
[2019-07-18 04:48] VITALS: BP 137/70
[2019-07-18 05:45] LABS: BASOPHILS 0 % (0-2); EOSINOPHILS 0 % (0-7); HEMATOCRIT 37.2 % (42.0-54.0); HEMOGLOBIN 12.4 g/dL (13.5-17.5); IMMATURE GRANULOCYTES 0.3 % (0-5); LYMPHOCYTES 4.5 % (15-50); MCH 28.8 pg (26.0-34.0); MCHC 33.3 g/dL (31.0-37.0); MCV 86.5 fL (80.0-100.0); MEAN PLATELET VOLUME 8.9 fL (7.4-10.4); MONOCYTES 8.3 % (2-11); NEUTROPHILS 86.9 % (40-80); PLATELET COUNT 457 10x3/uL (130-400); RDW 14.4 % (11.5-14.5)
[2019-07-18 05:54] LABS: WBC 16.1 10x3/uL (4.8-10.8)
[2019-07-18 06:07] LABS: CALC OSMOLALITY 261 mosm/kg (275-300); CALCIUM 9.2 mg/dL (8.5-10.1); CARBON DIOXIDE 30.3 mmol/L (21.0-32.0); CHLORIDE - SERUM 93 mmol/L (98-107); CREATININE - SERUM 0.6 mg/dL (0.6-1.3); GLUCOSE 127 mg/dL (74-106); POTASSIUM - SERUM 5.9 mmol/L (3.5-5.1); SODIUM 129 mmol/L (136-145); UREA NITROGEN 16 mg/dL (7-18); eGFR NON AFRICAN AMERICAN > 90 mL/min (90-120)
--- NOTE | 2019-07-18 07:51 | NUR ---
PT RESTING IN BED WITH EYES OPEN, AT THE BEDSIDE. CURRENTLY RCVING 4L VIA NC. IV LOCATED TO RIGHT FOREARM WITH NS RUNNING @ 30ML, ALSO A DILAUDID SURVEY TECHNOLOGIST IS PRESENT. SCHMIDT CATH PRESENT. NO S/S OF DISTRESS, AND DENIES NEEDS AT THIS TIME, WILL CONT TO MONITOR.
[2019-07-18 08:02] VITALS: BP 135/79
[2019-07-18 10:51] LABS: CALC OSMOLALITY 260 mosm/kg (275-300); CARBON DIOXIDE 28.8 mmol/L (21.0-32.0); CHLORIDE - SERUM 92 mmol/L (98-107); CREATININE - SERUM 0.5 mg/dL (0.6-1.3); GLUCOSE 147 mg/dL (74-106); SODIUM 128 mmol/L (136-145); UREA NITROGEN 14 mg/dL (7-18); eGFR NON AFRICAN AMERICAN > 90 mL/min (90-120)
[2019-07-18 10:52] LABS: POTASSIUM - SERUM 4.8 mmol/L (3.5-5.1)
[2019-07-18 11:36] VITALS: BP 124/77
--- NOTE | 2019-07-18 11:56 | NUR ---
FSBS 188, TREATED WITH 2 UNITS.
[2019-07-18 16:57] VITALS: BP 150/87
--- NOTE | 2019-07-18 19:00 | NUR ---
BEDSIDE REPORT RECEIVED AND CARE OF PT ASSUMED. PT LYING IN SUPINE POSITION WATCHING TV. IV TO RIGHT FA PATENT WITH NS INFUSING AT 30 ML/HR, AND INFORMATICS DEVELOPER W/ DILAUDID IN USE FOR PAIN CONTROL. WILL MONITOR FOR NEEDS.
--- NOTE | 2019-07-18 20:21 | NUR ---
[place] MEDICAITONS GIVEN. FSBS 234 THIS CHECK REQUIRING COVERAGE WITH 4 UINTS OF INSULIN PER SLIDING SCALE.
[2019-07-18 20:42] VITALS: BP 155/72
--- NOTE | 2019-07-18 21:20 | NUR ---
IV TO RIGHT FA BLEEDING. REMOVED WITH CATHETER TIP INTACT. RE-SITED TO LEFT FA USING 20 GUAGE CATHETER IN ONE STICK. IV FLUIDS AND INDUSTRIAL PRODUCTION MANAGER RE-STARTED.
[2019-07-19] VITALS (7 sets, daily range): BP systolic 98–148; BP diastolic 43–90
[2019-07-19 06:02] LABS: BASOPHILS 0.1 % (0-2); EOSINOPHILS 0 % (0-7); HEMATOCRIT 37.4 % (42.0-54.0); HEMOGLOBIN 12.5 g/dL (13.5-17.5); IMMATURE GRANULOCYTES 0.4 % (0-5); LYMPHOCYTES 6.9 % (15-50); MCH 28.5 pg (26.0-34.0); MCHC 33.4 g/dL (31.0-37.0); MCV 85.2 fL (80.0-100.0); MEAN PLATELET VOLUME 8.8 fL (7.4-10.4); MONOCYTES 12.2 % (2-11); NEUTROPHILS 80.4 % (40-80); PLATELET COUNT 480 10x3/uL (130-400); RBC 4.39 10x6/uL (4.20-6.10); RDW 14.1 % (11.5-14.5); WBC 16.7 10x3/uL (4.8-10.8)
[2019-07-19 06:20] LABS: CALC OSMOLALITY 262 mosm/kg (275-300); CALCIUM 8.4 mg/dL (8.5-10.1); CARBON DIOXIDE 27.3 mmol/L (21.0-32.0); CHLORIDE - SERUM 94 mmol/L (98-107); CREATININE - SERUM 0.4 mg/dL (0.6-1.3); GLUCOSE 99 mg/dL (74-106); POTASSIUM - SERUM 4.7 mmol/L (3.5-5.1); SODIUM 131 mmol/L (136-145); UREA NITROGEN 13 mg/dL (7-18); eGFR NON AFRICAN AMERICAN > 90 mL/min (90-120)
--- NOTE | 2019-07-19 07:25 | NUR ---
REC'D IN BED AWAKE AND ALERT. RESP EVEN AND UNLABORED WITH NO DISTRESS NOTED. CAN EXPRESS NEEDS AND WANTS. HAS DILUADID [employer] [employer] [facility] INFUSING AT THIS TIME. ASSESSMENT COMPLETED. C/L IN REACH AT BEDSIDE.
--- NOTE | 2019-07-19 09:10 | MORECARE ---
CASE MANAGEMENT DISCHARGE SUMMARY PATIENT: PAM CARRILLO UNIT: [id number] ADM DATE: 07/13/19 AGE: 49 : [birth year] SEX: M ROOM/BED: D.2234 AUTHOR: JW MELISSA PHYSICIAN: REFERRING PHYSICIAN: LG RITTER MD DATE OF SERVICE: 07/19/19 Discharge Plan Patient Name: PAM CARRILLO [facility] [facility] 1970 Planned Disposition: Acute Care Hospital Anticipated Discharge Date: 07/19/19 Discharge Date: Expected LOS: 6 Initial Reviewer: [email or web address] Initial Review Date: 07/19/2019 Generated: 07/19/19 10:09 am External Providers External Provider: [facility] Next Contact Date: Service Request Date: Service Type: Resolution: Reviewer: Comments: Patient Name: PAM CARRILLO Page [phone] at 0910 All edits/amendments must be made on the electronic document DICTATION DATE: 07/19/19908 SEWAGE DISPOSAL WORKER: DM 07/19/19908 RPT#: [id number] DC DATE: STATUS: ADM IN [facility] [address] [place] [address] END OF REPORT
--- NOTE | 2019-07-19 09:17 | MORECARE ---
CASE MANAGEMENT DISCHARGE SUMMARY PATIENT: PAM CARRILLO UNIT: [id number] ADM DATE: 07/13/19 AGE: 49 : 68 SEX: M ROOM/BED: D.2234 AUTHOR: JW MELISSA PHYSICIAN: REFERRING PHYSICIAN: LG RITTER MD DATE OF SERVICE: 07/19/19 Discharge Plan Patient Name: PAM CARRILLO [facility] [facility] 1970 Planned Disposition: Acute Care Hospital Anticipated Discharge Date: 07/19/19 Discharge Date: Expected LOS: 6 Initial Reviewer: [email or web address] Initial Review Date: 07/19/2019 Generated: 07/19/19 10:17 am DCPIA - Discharge Planning Initial Assessment Updated by [email or web address]: Suzette Hoover on 07/19/19 9:11 am * Is the patient Alert and Oriented? Yes * PCP Sees Enedelia Ramey at Dr. Ritter's office * Pharmacy [facility] [address] * Preadmission Environment Home with Family * ADLs Partial Dependent * Partial ADLs (Assistance needed) Ambulation * Equipment Crutch Hospital Bed Wheelchair * List name and contact numbers for known caregivers / representatives who currently or will assist patient after discharge: Fozia [facility] - [phone] * Verbal permission to speak to the caregivers and representatives has been obtained from the patient. Yes * Community resources currently utilized None * Additional services required to return to the preadmission environment? Yes * Can the patient safely return to the preadmission environment? Yes * Has this patient been hospitalized within the prior 30 days at any hospital? Yes Last DP export: 07/19/19 8:10 a Patient Name: PAM CARRILLO Page 72634 at 0917 All edits/amendments must be made on the electronic document DICTATION DATE: 07/19/19915 RAILROAD INSPECTOR: LILIANA 07/19/19915 RPT#: [id number] DC DATE: STATUS: ADM IN [facility] [address] [place] [address] END OF REPORT
--- NOTE | 2019-07-19 09:25 | MORECARE ---
CASE MANAGEMENT DISCHARGE SUMMARY PATIENT: PAM CARRILLO UNIT: [id number] ADM DATE: 07/13/19 AGE: 49 : [birth year] SEX: M ROOM/BED: D.2234 AUTHOR: JW MELISSA PHYSICIAN: REFERRING PHYSICIAN: LG RITTER MD DATE OF SERVICE: 07/19/19 Discharge Plan Patient Name: PAM CARRILLO Facility: [facility]:[place] : 1970 Planned Disposition: Acute Care Hospital Anticipated Discharge Date: 07/19/19 Discharge Date: Expected LOS: 6 Initial Reviewer: [email or web address] Initial Review Date: 07/19/2019 Generated: 07/19/19 10:24 am Comments DCP- Discharge Planning Updated by [email or web address]: Suzette Hoover on 07/19/19 8:[address] Patient Name: PAM CARRILLO Admission Status: ER Accout number: [id number] Admission Date: 07-13-2019 : 1970 Admission Diagnosis: Attending: LG RITTER Current LOS: 6 Anticipated DC Date: 07-19-2019 Planned Disposition: Acute [facility] Primary Insurance: [place] PRIVATE OPTIONS [place] Discharge Planning Comments: Dr. Ríos states she would like a transfer to [facility] to oncology for further oncology work up. I called Dr. Diaz and he agrees. Dr. De states to call when accepted and he will write discharge orders. I spoke with the patient and his in the room and they agree with transfer to [facility]. He lives with his and states he has all the DME he needs. I called the transfer team and spoke with Aidan and clinical faxed. CM will continue to follow and assist with discharge planning/needs. Sat Math Tutor: Suzette Hoover DCPIA - Discharge Planning Initial Assessment Updated by [email or web address]: Suzette Hoover on 07/19/19 9:11 am * Is the patient Alert and Oriented? Yes * PCP Sees Enedelia Ramey at Dr. Ritter's office * Pharmacy [facility] [address] * Preadmission Environment Home with Family * ADLs Partial Dependent * Partial ADLs (Assistance needed) Ambulation * Equipment Crutch Hospital Bed Wheelchair * List name and contact numbers for known caregivers / representatives who currently or will assist patient after discharge: Fozia alvarado - [phone] * Verbal permission to speak to the caregivers and representatives has been obtained from the patient. Yes * Community resources currently utilized None * Additional services required to return to the preadmission environment? Yes * Can the patient safely return to the preadmission environment? Yes * Has this patient been hospitalized within the prior 30 days at any hospital? Yes Last DP export: 07/19/19 8:17 a Patient Name: PAM CARRILLO Page 99337 at 0925 All edits/amendments must be made on the electronic document DICTATION DATE: 07/19/19923 FELLER HAND: LILIANA 07/19/19923 RPT#: [id number] DC DATE: STATUS: ADM IN [facility] [address] [place] [address] END OF REPORT
--- NOTE | 2019-07-19 13:49 | NUR ---
I have reviewed this patient and I concur with the Shift Assessment completed by the Licensed Practical Nurse today this shift.
--- NOTE | 2019-07-21 15:59 | MORECARE ---
CASE MANAGEMENT DISCHARGE SUMMARY PATIENT: PAM CARRILLO UNIT: [id number] ADM DATE: 07/13/19 AGE: 49 : [birth year] SEX: M ROOM/BED: D.2234 AUTHOR: JW MELISSA PHYSICIAN: REFERRING PHYSICIAN: LG RITTER MD DATE OF SERVICE: 07/21/19 Discharge Plan Patient Name: PAM CARRILLO Facility: [facility]:[place] : 1970 Planned Disposition: Acute Care Hospital Anticipated Discharge Date: 07/19/19 Discharge Date: 07/19/2019 Expected LOS: 6 Initial Reviewer: [email or web address] Initial Review Date: 07/19/2019 Generated: 07/21/19 4:59 pm Comments DCP- Discharge Planning Updated by [email or web address]: Suzette Hoover on 07/19/19 8:[address] Patient Name: PAM CARRILLO Admission Status: ER Accout number: [id number] Admission Date: 07-13-2019 : 1970 Admission Diagnosis: Attending: LG RITTER Current LOS: 6 Anticipated DC Date: 07-19-2019 Planned Disposition: Acute [facility] Primary Insurance: [place] PRIVATE OPTIONS [place] Discharge Planning Comments: Dr. Ríos states she would like a transfer to [facility] to oncology for further oncology work up. I called Dr. Diaz and he agrees. Dr. De states to call when accepted and he will write discharge orders. I spoke with the patient and his in the room and they agree with transfer to [facility]. He lives with his and states he has all the DME he needs. I called the transfer team and spoke with Aidan and clinical faxed. CM will continue to follow and assist with discharge planning/needs. Cider Maker: Suzette Hoover DCPIA - Discharge Planning Initial Assessment Updated by [email or web address]: Suzette Hoover on 07/19/19 9:11 am * Is the patient Alert and Oriented? Yes * PCP Sees Enedelia Ramey at Dr. Ritter's office * Pharmacy [facility] [address] * Preadmission Environment Home with Family * ADLs Partial Dependent * Partial ADLs (Assistance needed) Ambulation * Equipment Crutch Hospital Bed Wheelchair * List name and contact numbers for known caregivers / representatives who currently or will assist patient after discharge: Fozia [facility] - [phone] * Verbal permission to speak to the caregivers and representatives has been obtained from the patient. Yes * Community resources currently utilized None * Additional services required to return to the preadmission environment? Yes * Can the patient safely return to the preadmission environment? Yes * Has this patient been hospitalized within the prior 30 days at any hospital? Yes Last DP export: 07/19/19 8:25 a Patient Name: PAM CARRILLO Page 19636 at 1550 All edits/amendments must be made on the electronic document DICTATION DATE: 07/21/191558 SPONGE PACKER: LILIANA 07/21/191558 RPT#: [id number] SC DATE:07/19/19 STATUS: DIS IN [facility] [address] [place] [address] END OF REPORT
--- NOTE | 2019-07-21 16:08 | MORECARE ---
CASE MANAGEMENT DISCHARGE SUMMARY PATIENT: PAM CARRILLO UNIT: [id number] ADM DATE: 07/13/19 AGE: 49 : 68 SEX: M ROOM/BED: D.2234 AUTHOR: JW MELISSA PHYSICIAN: REFERRING PHYSICIAN: LG RITTER MD DATE OF SERVICE: 07/21/19 Discharge Plan Patient Name: PAM CARRILLO Facility: [facility]:[place] : 1970 Planned Disposition: Acute Care Hospital Anticipated Discharge Date: 07/19/19 Discharge Date: 07/19/2019 Expected LOS: 6 Initial Reviewer: [email or web address] Initial Review Date: 07/19/2019 Generated: 07/21/19 5:07 pm Comments DCP- Discharge Planning Updated by [email or web address]: Suzette Hoover on 07/19/19 8:[address] Patient Name: PAM CARRILLO Admission Status: ER Accout number: [id number] Admission Date: 07-13-2019 : 1970 Admission Diagnosis: Attending: LG RITTER Current LOS: 6 Anticipated DC Date: 07-19-2019 Planned Disposition: Acute [facility] Primary Insurance: [place] PRIVATE OPTIONS [place] Discharge Planning Comments: Dr. Ríos states she would like a transfer to [facility] to oncology for further oncology work up. I called Dr. Diaz and he agrees. Dr. De states to call when accepted and he will write discharge orders. I spoke with the patient and his in the room and they agree with transfer to [facility]. He lives with his and states he has all the DME he needs. I called the transfer team and spoke with Aidan and clinical faxed. CM will continue to follow and assist with discharge planning/needs. Driver License Reviewing Officer: Suzette Hoover DCPIA - Discharge Planning Initial Assessment Updated by [email or web address]: Suzette Hoover on 07/19/19 9:11 am * Is the patient Alert and Oriented? Yes * PCP Sees Enedelia Ramey at Dr. Ritter's office * Pharmacy [facility] [address] * Preadmission Environment Home with Family * ADLs Partial Dependent * Partial ADLs (Assistance needed) Ambulation * Equipment Crutch Hospital Bed Wheelchair * List name and contact numbers for known caregivers / representatives who currently or will assist patient after discharge: Fozia [facility] - [phone] * Verbal permission to speak to the caregivers and representatives has been obtained from the patient. Yes * Community resources currently utilized None * Additional services required to return to the preadmission environment? Yes * Can the patient safely return to the preadmission environment? Yes * Has this patient been hospitalized within the prior 30 days at any hospital? Yes Last DP export: 07/19/19 8:25 a Patient Name: PAM CARRILLO Page [id number] at 1608 All edits/amendments must be made on the electronic document DICTATION DATE: 07/21/191606 HEAT TREATER APPRENTICE: LILIANA 07/21/191606 RPT#: [id number] IN DATE:07/19/19 STATUS: DIS IN [facility] [address] [place] [address] END OF REPORT
== END 2019-07-19 22:00 | disposition short-term general hospital (02) | DRG 477 ==
LOC: D.ER 22:12 → D.MS 07-13 00:37 → OBSVTIME 07-13 00:37 → D.MS 07-13 13:12
PROVIDERS: Family Medicine; General Practice; ADMIT Family Medicine; ATTEND Family Medicine
PROC: 0QU03JZ Supplement Lumbar Vertebra with Synthetic Substitute, Percutaneous Approach (ICD-10-PCS; 2019-07-16)
PROC: 0QB03ZX Excision of Lumbar Vertebra, Percutaneous Approach, Diagnostic (ICD-10-PCS; 2019-07-16)
PROC: 0Q503ZZ Destruction of Lumbar Vertebra, Percutaneous Approach (ICD-10-PCS; 2019-07-16)
PROC: 0QS03ZZ Reposition Lumbar Vertebra, Percutaneous Approach (ICD-10-PCS; principal; 2019-07-16 13:00)
DX: M84.58XA Pathological fracture in neoplastic disease, other specified site, initial encounter for fracture (principal); E43 Unspecified severe protein-calorie malnutrition; C64.9 Malignant neoplasm of unspecified kidney, except renal pelvis; C78.00 Secondary malignant neoplasm of unspecified lung; C79.51 Secondary malignant neoplasm of bone; E87.1 Hypo-osmolality and hyponatremia